=== PATIENT | male | born 1975 | race Caucasian/White ===

== ENCOUNTER 2019-04-12 14:57 | Emergency (ER) | payer OTHER ==
[~2019-04-12] VITALS: Ht 180.3 cm; Wt 119.7 kg
[~2019-04-12 14:57] MED LIST: ADDERALL XR 3030 MG PO; BACTRIM DS TAB1 EACH PO; GLIPIZIDE ER5 MG PO; LEVAQUIN500 MG PO
--- OUTSIDE RECORDS SUMMARY | 2019-04-12 15:01 | XMS REPORT | Summary of Care ---
Author Author [facility] Organization [facility] Address Unknown Phone Unavailable Encounter HQ Juaquin(MELANIE) [id number] Date(s): 12/17/16 - 12/25/16 [facility] [address] [place] [address]- Discharge Disposition: Home or Self Care Attending Physician: Jimbo Berkowitz DO Admitting Physician: Jimbo Berkowitz DO Vital Signs 1 2 3 Most recent to oldest [Reference Range]: 180.34 cm (12/18/16 3:34 AM) 180.34 cm (12/17/16 9:16 PM) Height 99.4 DegF *HI* (12/25/16 11:53 AM) 98.8 DegF (12/25/16 8:00 AM) 98.4 DegF (12/25/16 4:00 AM) Temperature Oral [96.4-99.1 DegF] 107/69 mmHg (12/25/16 11:53 AM) 104/70 mmHg (12/25/16 8:00 AM) 106/69 mmHg (12/25/16 4:00 AM) Blood Pressure [90-140/60-90 mmHg] 17 BRMIN (12/25/16 11:53 AM) 17 BRMIN (12/25/16 8:00 AM) 16 BRMIN (12/25/16 4:00 AM) Respiratory Rate [14-20 BRMIN] 97 bpm (12/25/16 11:53 AM) 92 bpm (12/25/16 8:00 AM) 90 bpm (12/25/16 4:00 AM) Peripheral Pulse Rate [60-100 bpm] 115.455 kg (12/18/16 3:34 AM) 115 kg (12/17/16 9:16 PM) Weight 35.5 m2 (12/18/16 3:34 AM) 35.36 m2 (12/17/16 9:16 PM) Body Mass Index Problem List Condition Effective Dates Status Health Status Informant ADD (attention Active deficit disorder)(Confirmed) Cellulitis(Confirmed Resolved ) Diabetes(Confirmed) Resolved Psoriasis(Confirmed) Active 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) Allergies, Adverse Reactions, Alerts Substance Reaction Severity Status NKDA Active Medications Acetadote + D5W 200 mL 15,000 mg, 75 mL, Route: IV, Drug form: SOLN, ONCE, Dosing Weight 115.455, kg, S tart date: 12/19/16 14:41:00 PHYSICAL THERAPY AIDES TEACHER, Stop date: 12/19/16 14:41:00 PHYSICAL THERAPY AIDES TEACHER Notes: (Same as: Acetadote) MEDICATION WASTE Product Size: [address] Wasted: ___ mgWASTE: F/P - Black; E - Municipal Trash Bin Start Date: 12/19/16 Stop Date: 12/19/16 Status: Completed acetylcysteine oral solution (mg) 16,100 mg, 80.5 mL, Route: PO, Drug form: SOLN, ONCE, Dosing Weight 115.455, kg, Start date: 12/20/16 19:38:00 PHYSICAL THERAPY AIDES TEACHER, Stop date: 12/20/16 19:38:00 PHYSICAL THERAPY AIDES TEACHER Notes: WASTE: F/P - Black; E - Municipal Trash Bin Start Date: 12/20/16 Stop Date: 12/20/16 Status: Completed Adderall 30 mg, Route: PO, Drug form: TAB, QAM, Dosing Weight 115.455, kg, Start date: 9:00:00 PHYSICAL THERAPY AIDES TEACHER, Duration: 30 day, Stop date: 01/17/17 9:00:00 PHYSICAL THERAPY AIDES TEACHER Start Date: 12/19/16 Stop Date: 12/19/16 Status: Discontinued Adderall 30 mg oral tablet 30 mg=1 tab, PO, QAM, 0 Refill(s) Start Date: 12/17/16 Status: Ordered Adderall XR 10 mg, Route: PO, Drug form: ERCAP, Before Lunch, Dosing Weight 115.455, kg, Sta rt date: 12/19/16 11:30:00 PHYSICAL THERAPY AIDES TEACHER, Duration: 30 day, Stop date: 01/17/17 11:30:[address] Start Date: 12/19/16 Stop Date: 12/19/16 Status: Discontinued Adderall XR 10 mg oral capsule, extended release 10 mg=1 cap, PO, Before Lunch, 0 Refill(s) Start Date: 12/17/16 Stop Date: 12/24/16 Status: Discontinued calcium gluconate + sodium chloride 0.9% INJ 100 mL 2 gm, 20 mL, Route: IVPB, PRN, Dosing Weight 115, kg, PRN Abnormal Lab Result, F or NON-ICU Patients Only., Start date: 12/18/16 3:22:00 PHYSICAL THERAPY AIDES TEACHER, Duration: 30 day, S top date: 01/17/17 3:21:00 PHYSICAL THERAPY AIDES TEACHER Notes: WASTE: F/P - Sink; E - Municipal Trash Bin Start Date: 12/18/16 Stop Date: 12/18/16 Status: Discontinued calcium gluconate + sodium chloride 0.9% INJ 150 mL 3 gm, 30 mL, Route: IVPB, PRN, Dosing Weight 115, kg, PRN Abnormal Lab Result, F or NON-ICU Patients Only., Start date: 12/18/16 3:22:00 PHYSICAL THERAPY AIDES TEACHER, Duration: 30 day, S top date: 01/17/17 3:21:00 PHYSICAL THERAPY AIDES TEACHER Notes: WASTE: F/P - Sink; E - Municipal Trash Bin Start Date: 12/18/16 Stop Date: 12/18/16 Status: Discontinued Dextrose 50% Syringe 25 gm, 50 mL, Route: IVP, Drug Form: INJ, Dosing Weight 115.455, kg, PRN, PRN Bl ood Glucose Results, Start date: 12/18/16 4:01:00 PHYSICAL THERAPY AIDES TEACHER, Duration: 30 day, Stop da te: 01/17/17 4:00:00 PHYSICAL THERAPY AIDES TEACHER Start Date: 12/18/16 Stop Date: 12/18/16 Status: Discontinued Dextrose 50% Syringe 12.5 gm, 25 mL, Route: IVP, Drug Form: INJ, Dosing Weight 115.455, kg, PRN, PRN Blood Glucose Results, Start date: 12/18/16 4:01:00 PHYSICAL THERAPY AIDES TEACHER, Duration: 30 day, Stop date: 01/17/17 4:00:00 PHYSICAL THERAPY AIDES TEACHER Start Date: 12/18/16 Stop Date: 12/18/16 Status: Discontinued Dextrose 50% Syringe 25 gm, 50 mL, Route: IVP, Drug Form: INJ, Dosing Weight 115.455, kg, PRN, PRN Bl ood Glucose Results, Start date: 12/18/16 14:49:00 PHYSICAL THERAPY AIDES TEACHER, Duration: 30 day, Stop d ate: 01/17/17 14:48:00 PHYSICAL THERAPY AIDES TEACHER Start Date: 12/18/16 Stop Date: 12/25/16 Status: Discontinued Dextrose 50% Syringe 12.5 gm, 25 mL, Route: IVP, Drug Form: INJ, Dosing Weight 115.455, kg, PRN, PRN Blood Glucose Results, Start date: 12/18/16 14:49:00 PHYSICAL THERAPY AIDES TEACHER, Duration: 30 day, Stop date: 01/17/17 14:48:00 PHYSICAL THERAPY AIDES TEACHER Start Date: 12/18/16 Stop Date: 12/25/16 Status: Discontinued Dilaudid 0.5 mg, 0.5 mL, Route: IV, Drug form: INJ, Q4H, Dosing Weight 115.455, kg, PRN P ain Score 7-10, Start date: 12/20/16 1:26:00 PHYSICAL THERAPY AIDES TEACHER, Duration: 30 day, Stop date: 0 01/19/17 1:25:00 PHYSICAL THERAPY AIDES TEACHER Start Date: 12/20/16 Stop Date: 12/25/16 Status: Discontinued Farxiga 10 mg oral tablet 10 mg=1 tab, PO, Daily, 0 Refill(s) Start Date: 12/17/16 Status: Ordered glucagon 1 mg, Route: IM, Drug form: PDR/INJ, PRN, Dosing Weight 115.455, kg, PRN Blood G lucose Results, Start date: 12/18/16 4:01:00 PHYSICAL THERAPY AIDES TEACHER, Duration: 30 day, Stop date: 0 01/17/17 4:00:00 PHYSICAL THERAPY AIDES TEACHER Start Date: 12/18/16 Stop Date: 12/18/16 Status: Discontinued glucagon 1 mg, Route: IM, Drug form: PDR/INJ, PRN, Dosing Weight 115.455, kg, PRN Blood G lucose Results, Start date: 12/18/16 14:49:00 PHYSICAL THERAPY AIDES TEACHER, Duration: 30 day, Stop date: 01/17/17 14:48:00 PHYSICAL THERAPY AIDES TEACHER Start Date: 12/18/16 Stop Date: 12/25/16 Status: Discontinued ibuprofen 400 mg, 1 tab, Route: PO, Drug form: TAB, Q4H, Dosing Weight 115.455, kg, PRN Pa in 1-3/Temp > 100.4 F, Start date: 12/18/16 14:51:00 PHYSICAL THERAPY AIDES TEACHER, Duration: 30 day, Stop date: 01/17/17 14:50:00 PHYSICAL THERAPY AIDES TEACHER Notes: (Same as: Jerry)"Do Not Crush" Give with food. Start Date: 12/18/16 Stop Date: 12/19/16 Status: Discontinued insulin aspart 8 unit, 0.08 mL, Route: SUB-Q, Drug form: SOLN, TID-Before Meals, Dosing Weight 115.455, kg, PRN Blood Glucose Results, Start date: 12/18/16 4:01:00 PHYSICAL THERAPY AIDES TEACHER, Durati on: 30 day, Stop date: 01/17/17 4:00:00 PHYSICAL THERAPY AIDES TEACHER Notes: Roll in palms of hands gently; Do not shake vigorously. (Same as: Margot Perea)"single patient use only"WASTE: F/P - Black; E - Municipal Trash Bin Stable f or 28 days at room temperature.Expires in days from Date Start Date: 12/18/16 Stop Date: 12/18/16 Status: Discontinued insulin aspart 10 unit, 0.1 mL, Route: SUB-Q, Drug form: SOLN, TID-Before Meals, Dosing Weight 115.455, kg, PRN Blood Glucose Results, Start date: 12/18/16 4:01:00 PHYSICAL THERAPY AIDES TEACHER, Durati on: 30 day, Stop date: 01/17/17 4:00:00 PHYSICAL THERAPY AIDES TEACHER Notes: Roll in palms of hands gently; Do not shake vigorously. (Same as: Margot Perea)"single patient use only"WASTE: F/P - Black; E - Municipal Trash Bin Stable f or 28 days at room temperature.Expires in days from Date Start Date: 12/18/16 Stop Date: 12/18/16 Status: Discontinued insulin aspart 6 unit, 0.06 mL, Route: SUB-Q, Drug form: SOLN, TID-Before Meals, Dosing Weight 115.455, kg, PRN Blood Glucose Results, Start date: 12/18/16 4:01:00 PHYSICAL THERAPY AIDES TEACHER, Durati on: 30 day, Stop date: 01/17/17 4:00:00 PHYSICAL THERAPY AIDES TEACHER Notes: Roll in palms of hands gently; Do not shake vigorously. (Same as: Margot Perea)"single patient use only"WASTE: F/P - Black; E - Municipal Trash Bin Stable f or 28 days at room temperature.Expires in days from Date Start Date: 12/18/16 Stop Date: 12/18/16 Status: Discontinued insulin aspart 4 unit, 0.04 mL, Route: SUB-Q, Drug form: SOLN, TID-Before Meals, Dosing Weight 115.455, kg, PRN Blood Glucose Results, Start date: 12/18/16 4:01:00 PHYSICAL THERAPY AIDES TEACHER, Durati on: 30 day, Stop date: 01/17/17 4:00:00 PHYSICAL THERAPY AIDES TEACHER Notes: Roll in palms of hands gently; Do not shake vigorously. (Same as: NovoSHEMAR Perea)"single patient use only"WASTE: F/P - Black; E - Municipal Trash Bin Stable f or 28 days at room temperature.Expires in days from Date Start Date: 12/18/16 Stop Date: 12/18/16 Status: Discontinued insulin aspart 2 unit, 0.02 mL, Route: SUB-Q, Drug form: SOLN, TID-Before Meals, Dosing Weight 115.455, kg, PRN Blood Glucose Results, Start date: 12/18/16 4:01:00 PHYSICAL THERAPY AIDES TEACHER, Durati on: 30 day, Stop date: 01/17/17 4:00:00 PHYSICAL THERAPY AIDES TEACHER Notes: Roll in palms of hands gently; Do not shake vigorously. (Same as: NovoSHEMAR Perea)"single patient use only"WASTE: F/P - Black; E - Municipal Trash Bin Stable f or 28 days at room temperature.Expires in days from Date Start Date: 12/18/16 Stop Date: 12/18/16 Status: Discontinued insulin aspart 8 unit, 0.08 mL, Route: SUB-Q, Drug form: SOLN, TID-Before Meals, Dosing Weight 115.455, kg, PRN Blood Glucose Results, Start date: 12/18/16 14:49:00 PHYSICAL THERAPY AIDES TEACHER, Durat ion: 30 day, Stop date: 01/17/17 14:48:00 PHYSICAL THERAPY AIDES TEACHER Notes: Roll in palms of hands gently; Do not shake vigorously. (Same as: Margot Perea)"single patient use only"WASTE: F/P - Black; E - Municipal Trash Bin Stable f or 28 days at room temperature.Expires in days from Date Start Date: 12/18/16 Stop Date: 12/25/16 Status: Discontinued insulin aspart 10 unit, 0.1 mL, Route: SUB-Q, Drug form: SOLN, TID-Before Meals, Dosing Weight 115.455, kg, PRN Blood Glucose Results, Start date: 12/18/16 14:49:00 PHYSICAL THERAPY AIDES TEACHER, Durat ion: 30 day, Stop date: 01/17/17 14:48:00 PHYSICAL THERAPY AIDES TEACHER Notes: Roll in palms of hands gently; Do not shake vigorously. (Same as: Margot Perea)"single patient use only"WASTE: F/P - Black; E - Municipal Trash Bin Stable f or 28 days at room temperature.Expires in days from Date Start Date: 12/18/16 Stop Date: 12/25/16 Status: Discontinued insulin aspart 3 unit, 0.03 mL, Route: SUB-Q, Drug form: SOLN, Bedtime, Dosing Weight 115.455, kg, PRN Blood Glucose Results, Start date: 12/18/16 14:49:00 PHYSICAL THERAPY AIDES TEACHER, Duration: 30 d ay, Stop date: 01/17/17 14:48:00 PHYSICAL THERAPY AIDES TEACHER Notes: Roll in palms of hands gently; Do not shake vigorously. (Same as: Margot Perea)"single patient use only"WASTE: F/P - Black; E - Municipal Trash Bin Stable f or 28 days at room temperature.Expires in days from Date Start Date: 12/18/16 Stop Date: 12/25/16 Status: Discontinued insulin aspart 2 unit, 0.02 mL, Route: SUB-Q, Drug form: SOLN, Bedtime, Dosing Weight 115.455, kg, PRN Blood Glucose Results, Start date: 12/18/16 14:49:00 PHYSICAL THERAPY AIDES TEACHER, Duration: 30 d ay, Stop date: 01/17/17 14:48:00 PHYSICAL THERAPY AIDES TEACHER Notes: Roll in palms of hands gently; Do not shake vigorously. (Same as: Margot Perea)"single patient use only"WASTE: F/P - Black; E - Municipal Trash Bin Stable f or 28 days at room temperature.Expires in days from Date Start Date: 12/18/16 Stop Date: 12/25/16 Status: Discontinued insulin aspart 1 unit, 0.01 mL, Route: SUB-Q, Drug form: SOLN, Bedtime, Dosing Weight 115.455, kg, PRN Blood Glucose Results, Start date: 12/18/16 14:49:00 PHYSICAL THERAPY AIDES TEACHER, Duration: 30 d ay, Stop date: 01/17/17 14:48:00 PHYSICAL THERAPY AIDES TEACHER Notes: Roll in palms of hands gently; Do not shake vigorously. (Same as: Margot Perea)"single patient use only"WASTE: F/P - Black; E - Municipal Trash Bin Stable f or 28 days at room temperature.Expires in days from Date Start Date: 12/18/16 Stop Date: 12/25/16 Status: Discontinued insulin aspart 4 unit, 0.04 mL, Route: SUB-Q, Drug form: SOLN, Bedtime, Dosing Weight 115.455, kg, PRN Blood Glucose Results, Start date: 12/18/16 14:49:00 PHYSICAL THERAPY AIDES TEACHER, Duration: 30 d ay, Stop date: 01/17/17 14:48:00 PHYSICAL THERAPY AIDES TEACHER Notes: Roll in palms of hands gently; Do not shake vigorously. (Same as: Margot Perea)"single patient use only"WASTE: F/P - Black; E - Municipal Trash Bin Stable f or 28 days at room temperature.Expires in days from Date Start Date: 12/18/16 Stop Date: 12/25/16 Status: Discontinued insulin aspart 6 unit, 0.06 mL, Route: SUB-Q, Drug form: SOLN, TID-Before Meals, Dosing Weight 115.455, kg, PRN Blood Glucose Results, Start date: 12/18/16 14:49:00 PHYSICAL THERAPY AIDES TEACHER, Durat ion: 30 day, Stop date: 01/17/17 14:48:00 PHYSICAL THERAPY AIDES TEACHER Notes: Roll in palms of hands gently; Do not shake vigorously. (Same as: Margot Perea)"single patient use only"WASTE: F/P - Black; E - Municipal Trash Bin Stable f or 28 days at room temperature.Expires in days from Date Start Date: 12/18/16 Stop Date: 12/25/16 Status: Discontinued insulin aspart 4 unit, 0.04 mL, Route: SUB-Q, Drug form: SOLN, TID-Before Meals, Dosing Weight 115.455, kg, PRN Blood Glucose Results, Start date: 12/18/16 14:49:00 PHYSICAL THERAPY AIDES TEACHER, Durat ion: 30 day, Stop date: 01/17/17 14:48:00 PHYSICAL THERAPY AIDES TEACHER Notes: Roll in palms of hands gently; Do not shake vigorously. (Same as: Margot Perea)"single patient use only"WASTE: F/P - Black; E - Municipal Trash Bin Stable f or 28 days at room temperature.Expires in days from Date Start Date: 12/18/16 Stop Date: 12/25/16 Status: Discontinued insulin aspart 2 unit, 0.02 mL, Route: SUB-Q, Drug form: SOLN, TID-Before Meals, Dosing Weight 115.455, kg, PRN Blood Glucose Results, Start date: 12/18/16 14:49:00 PHYSICAL THERAPY AIDES TEACHER, Durat ion: 30 day, Stop date: 01/17/17 14:48:00 PHYSICAL THERAPY AIDES TEACHER Notes: Roll in palms of hands gently; Do not shake vigorously. (Same as: Margot Perea)"single patient use only"WASTE: F/P - Black; E - Municipal Trash Bin Stable f or 28 days at room temperature.Expires in days from Date Start Date: 12/18/16 Stop Date: 12/25/16 Status: Discontinued Insulin regular 4 unit, 0.04 mL, Route: IVP, Drug form: INJ, ONCE, Dosing Weight 115, kg, Priori ty: STAT, Start date: 12/18/16 1:02:00 PHYSICAL THERAPY AIDES TEACHER, Stop date: 12/18/16 1:02:00 PHYSICAL THERAPY AIDES TEACHER Notes: (Same as: Humulin R and NovoLIN R)WASTE: F/P - Black; E - Municipal Trash Bin (Do not shake) Start Date: 12/18/16 Stop Date: 12/18/16 Status: Completed Levemir 10 unit, 0.1 mL, Route: SUB-Q, Drug form: INJ, Bedtime, Dosing Weight 115.455, k g, Start date: 12/20/16 21:00:00 PHYSICAL THERAPY AIDES TEACHER, Duration: 30 day, Stop date: 01/18/17 21:0 0:00 PHYSICAL THERAPY AIDES TEACHER Notes: Same as GeorgiairDo not hold insulin without contacting prescriberWASTE: F/ P - Black; E - Municipal Trash Bin "single patient use only" Start Date: 12/20/16 Stop Date: 12/25/16 Status: Discontinued magnesium oxide 800 mg, 2 tab, Route: PO, Drug form: TAB, PRN, Dosing Weight 115, kg, PRN Abnorm al Lab Result, For NON-ICU Patients Only., Start date: 12/18/16 3:22:00 PHYSICAL THERAPY AIDES TEACHER, Dur ation: 30 day, Stop date: 01/17/17 3:21:00 PHYSICAL THERAPY AIDES TEACHER Notes: (Same as: Mag-Ox 400)Magnesium oxide [id number] elemental magnesiumDose= ____mg magnesium oxide (___mg elemental magnesium) Start Date: 12/18/16 Stop Date: 12/18/16 Status: Discontinued magnesium sulfate 1 gm, 100 mL, Route: IVPB, Drug form: INJ, PRN, Dosing Weight 115, kg, PRN Abnor mal Lab Result, For NON-ICU Patients Only., Start date: 12/18/16 3:22:00 PHYSICAL THERAPY AIDES TEACHER, Du ration: 30 day, Stop date: 01/17/17 3:21:00 PHYSICAL THERAPY AIDES TEACHER Notes: WASTE: F/P - Sink; E - Municipal Trash Bin Start Date: 12/18/16 Stop Date: 12/18/16 Status: Discontinued magnesium sulfate 2 gm, 50 mL, Route: IVPB, Drug form: INJ, PRN, Dosing Weight 115, kg, PRN Abnorm al Lab Result, For NON-ICU Patients Only., Start date: 12/18/16 3:22:00 PHYSICAL THERAPY AIDES TEACHER, Dur ation: 30 day, Stop date: 01/17/17 3:21:00 PHYSICAL THERAPY AIDES TEACHER Notes: WASTE: F/P - Sink; E - Municipal Trash Bin Start Date: 12/18/16 Stop Date: 12/18/16 Status: Discontinued morphine Sulfate 2 mg, 1 mL, Route: IVP, Drug form: INJ, Q4H, Dosing Weight 115, kg, PRN Pain Sco re 7-10, Start date: 12/18/16 3:23:00 PHYSICAL THERAPY AIDES TEACHER, Duration: 30 day, Stop date: 01/17/17 3:22:00 PHYSICAL THERAPY AIDES TEACHER Notes: (Same as:MORPhine Sulfate) Start Date: 12/18/16 Stop Date: 12/19/16 Status: Discontinued ondansetron 4 mg, 2 mL, Route: IVP, Drug form: INJ, Q6H, Dosing Weight 115, kg, PRN Nausea & Vomiting, Start date: 12/18/16 3:23:00 PHYSICAL THERAPY AIDES TEACHER, Duration: 30 day, Stop date: 3:22:00 PHYSICAL THERAPY AIDES TEACHER Notes: (Same as: Xi) MEDICATION WASTE Product Size: 4 mgProduct Was alexis: ___ mg Start Date: 12/18/16 Stop Date: 12/25/16 Status: Discontinued PHOS-NaK 1 pkt, Route: PO, Drug Form: PDR/REC, Dosing Weight 115.455, kg, ONCE, Start med e: 12/21/16 9:02:00 PHYSICAL THERAPY AIDES TEACHER, Stop date: 12/21/16 9:02:00 PHYSICAL THERAPY AIDES TEACHER Notes: (Same as: Phos-NaK) Each 1.5 gm pkt has 250mg phosphorous. Mix w/2.5oz w ater and stir. Start Date: 12/21/16 Stop Date: 12/21/16 Status: Completed PHOS-NaK 1 pkt, Route: PO, Drug Form: PDR/REC, Dosing Weight 115.455, kg, ONCE, Start med e: 12/22/16 15:28:00 PHYSICAL THERAPY AIDES TEACHER, Stop date: 12/22/16 15:28:00 PHYSICAL THERAPY AIDES TEACHER Notes: (Same as: Phos-NaK) Each 1.5 gm pkt has 250mg phosphorous. Mix w/2.5oz w ater and stir. Start Date: 12/22/16 Stop Date: 12/22/16 Status: Completed PHOS-NaK 1 pkt, Route: PO, Drug Form: PDR/REC, Dosing Weight 115.455, kg, ONCE, Start med e: 12/20/16 8:13:00 PHYSICAL THERAPY AIDES TEACHER, Stop date: 12/20/16 8:13:00 PHYSICAL THERAPY AIDES TEACHER Notes: (Same as: Phos-NaK) Each 1.5 gm pkt has 250mg phosphorous. Mix w/2.5oz w ater and stir. Start Date: 12/20/16 Stop Date: 12/20/16 Status: Completed PHOS-NaK 1 pkt, Route: PO, Drug Form: PDR/REC, Dosing Weight 115.455, kg, ONCE, Start med e: 12/25/16 10:59:00 PHYSICAL THERAPY AIDES TEACHER, Stop date: 12/25/16 10:59:00 PHYSICAL THERAPY AIDES TEACHER Notes: (Same as: Phos-NaK) Each 1.5 gm pkt has 250mg phosphorous. Mix w/2.5oz w ater and stir. Start Date: 12/25/16 Stop Date: 12/25/16 Status: Completed Please bring Pt's Own Adderall to pharmacy for labels Please bring Pt's Own Adderall to pharmacy for labels, Reminder, Drug form: MISC , Route: MISC, Q12H, 12/18/16 15:00:00 PHYSICAL THERAPY AIDES TEACHER, Duration: 30 day, Stop date: 7 9:00:00 PHYSICAL THERAPY AIDES TEACHER Start Date: 12/18/16 Stop Date: 12/22/16 Status: Voided With Results potassium chloride 40 mEq, 2 tab, Route: PO, Drug form: ERTAB, ONCE, Dosing Weight 115.455, kg, Sta rt date: 12/20/16 8:43:00 PHYSICAL THERAPY AIDES TEACHER, Stop date: 12/20/16 8:43:00 PHYSICAL THERAPY AIDES TEACHER Notes: (Same as: K-Dur 20)"Do Not Crush" With food and full glass of water Start Date: 12/20/16 Stop Date: 12/20/16 Status: Completed potassium chloride 10 mEq, 100 mL, Route: IVPB, Drug form: INJ, PRN, Dosing Weight 115, kg, PRN Abn ormal Lab Result, For NON-ICU Patients Only, Start date: 12/18/16 3:22:00 PHYSICAL THERAPY AIDES TEACHER, D uration: 30 day, Stop date: 01/17/17 3:21:00 PHYSICAL THERAPY AIDES TEACHER Notes: Infuse at a rate of 10 mEq/hr.(Same as: KCL) Start Date: 12/18/16 Stop Date: 12/18/16 Status: Discontinued potassium chloride 20 mEq, 1 tab, Route: PO, Drug form: ERTAB, PRN, Dosing Weight 115, kg, PRN Abno rmal Lab Result, For NON-ICU Patients Only, Start date: 12/18/16 3:22:00 PHYSICAL THERAPY AIDES TEACHER, Du ration: 30 day, Stop date: 01/17/17 3:21:00 PHYSICAL THERAPY AIDES TEACHER Notes: (Same as: K-Dur 20)"Do Not Crush" With food and full glass of water Start Date: 12/18/16 Stop Date: 12/18/16 Status: Discontinued potassium chloride 20 mEq, 15 mL, Route: NJ, Drug form: LIQ, PRN, Dosing Weight 115, kg, PRN Abnorm al Lab Result, For NON-ICU Patients Only, Start date: 12/18/16 3:22:00 PHYSICAL THERAPY AIDES TEACHER, Dura tion: 30 day, Stop date: 01/17/17 3:21:00 PHYSICAL THERAPY AIDES TEACHER Notes: (Same as: Potassium Chloride) Start Date: 12/18/16 Stop Date: 12/18/16 Status: Discontinued potassium chloride 20 mEq oral tablet, extended release 40 mEq, 2 tab, Route: PO, Drug form: ERTAB, ONCE, Dosing Weight 115, kg, Priorit y: STAT, Start date: 12/18/16 1:02:00 PHYSICAL THERAPY AIDES TEACHER, Stop date: 12/18/16 1:02:00 PHYSICAL THERAPY AIDES TEACHER Notes: (Same as: K-Dur 20)"Do Not Crush" With food and full glass of water Start Date: 12/18/16 Stop Date: 12/18/16 Status: Completed potassium phosphate 1.45 gm, Route: PO, ONCE, Dosing Weight 115.455, kg, Start date: 12/20/16 6:56:0 0 PHYSICAL THERAPY AIDES TEACHER, Stop date: 12/20/16 6:56:00 PHYSICAL THERAPY AIDES TEACHER Start Date: 12/20/16 Stop Date: 12/20/16 Status: Deleted potassium phosphate + sodium chloride 0.9% INJ 250 mL 15 mmol, 5 mL, Route: IVPB, ONCE, Dosing Weight 115.455, kg, Start date: 7 7:51:00 PHYSICAL THERAPY AIDES TEACHER, Stop date: 12/23/16 7:51:00 PHYSICAL THERAPY AIDES TEACHER Notes: (Same as: K Phosphate.) 1 mMol phoshate has 1.47 mEq potassium Infuse o ludin 4 hours Start Date: 12/23/16 Stop Date: 12/23/16 Status: Completed potassium phosphate + sodium chloride 0.9% INJ 250 mL 15 mmol, 5 mL, Route: IVPB, ONCE, Dosing Weight 115.455, kg, Start date: 7 16:08:00 PHYSICAL THERAPY AIDES TEACHER, Stop date: 12/23/16 16:08:00 PHYSICAL THERAPY AIDES TEACHER Notes: (Same as: K Phosphate.) 1 mMol phoshate has 1.47 mEq potassium Infuse o ludin 4 hours Start Date: 12/23/16 Stop Date: 12/23/16 Status: Completed potassium phosphate + sodium chloride 0.9% INJ 250 mL 30 mmol, 10 mL, Route: IVPB, PRN, Dosing Weight 115, kg, PRN Abnormal Lab Result , For NON-ICU Patients Only., Start date: 12/18/16 3:22:00 PHYSICAL THERAPY AIDES TEACHER, Duration: 30 day , Stop date: 01/17/17 3:21:00 PHYSICAL THERAPY AIDES TEACHER Notes: (Same as: K Phosphate.) 1 mMol phoshate has 1.47 mEq potassium Infuse o ludin 4 hours Start Date: 12/18/16 Stop Date: 12/18/16 Status: Discontinued potassium phosphate + sodium chloride 0.9% INJ 250 mL 15 mmol, 5 mL, Route: IVPB, PRN, Dosing Weight 115, kg, PRN Abnormal Lab Result, For NON-ICU Patients Only., Start date: 12/18/16 3:22:00 PHYSICAL THERAPY AIDES TEACHER, Duration: 30 day, Stop date: 01/17/17 3:21:00 PHYSICAL THERAPY AIDES TEACHER Notes: (Same as: K Phosphate.) 1 mMol phoshate has 1.47 mEq potassium Infuse o ludin 4 hours Start Date: 12/18/16 Stop Date: 12/18/16 Status: Discontinued potassium phosphate-sodium phosphate 250 mg-280 mg-160 mg oral powder for recons titution 2 pkt, Route: PO, Drug Form: PDR/REC, Dosing Weight 115, kg, PRN, PRN Abnormal L ab Result, For NON-ICU Patients Only, Start date: 12/18/16 3:22:00 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 Mix w/2.5oz w ater and stir. Start Date: 12/18/16 Stop Date: 12/18/16 Status: Discontinued Saline Flush 0.9% 10 ml, Route: IVP, Drug Form: INJ, Dosing Weight 115, kg, PRN, PRN Line Flush, S tart date: 12/18/16 3:23:00 PHYSICAL THER[employer]Y [employer]IDES TEACHER, Duration: 30 day, Stop date: 01/17/17 3:22:[address] Notes: (Same as: BD Posiflush) Start Date: 12/18/16 Stop Date: 12/25/16 Status: Discontinued Saline Flush 0.9% 10 mL, Route: IVP, Drug Form: INJ, Dosing Weight 115, kg, PRN, PRN Line Flush, S tart date: 12/17/16 21:58:00 PHYSICAL THER[employer]Y [employer]IDES TE[employer]ER, Duration: 30 day, Stop date: 01/16/17 21:57:00 PHYSICAL THERAPY AIDES TEACHER Notes: (Same as: BD Posiflush) Start Date: 12/17/16 Stop Date: 12/25/16 Status: Discontinued sodium chloride 0.9% 1000 ml INJ 1,000 mL 1,000 mL, Rate: 100 ml/hr, Infuse over: 10 hr, Route: IV, Dosing Weight 115 kg, Total Volume: 1,000, Start date: 12/18/16 3:23:00 PHYSICAL THERAPY AIDES TEACHER, Duration: 30 day, Stop da te: 01/17/17 3:22:00 PHYSICAL THERAPY AIDES TEACHER Start Date: 12/18/16 Stop Date: 12/20/16 Status: Discontinued sodium chloride 0.9% 1000 ml INJ 1,000 mL 1,000 mL, Rate: 125 ml/hr, Infuse over: 8 hr, Route: IV, Dosing Weight 115 kg, T otal Volume: 1,000, Start date: 12/17/16 21:58:00 PHYSICAL THERAPY AIDES TEACHER, Duration: 30 day, Stop da te: 01/16/17 21:57:00 PHYSICAL THERAPY AIDES TEACHER Start Date: 12/17/16 Stop Date: 12/18/16 Status: Discontinued sodium chloride 0.9% INJ 250 mL 250 mL, Rate: Geospatial Information Scientist for use with blood product administration., Dosing Weight 115, kg, Route: IV, Total Volume: 250, Priority: Routine, Start Date: 12/17/16 2 1:59:00 PHYSICAL THERAPY AIDES TEACHER, Duration: 1 day, Stop date: 12/18/16 21:58:00 PHYSICAL THERAPY AIDES TEACHER, Replace Every: 2 4 hr Start Date: 12/17/16 Stop Date: 12/18/16 Status: Discontinued sodium phosphate + D5W 250 mL 15 mmol, 5 mL, Route: IVPB, PRN, Dosing Weight 115, kg, PRN Abnormal Lab Result, For NON-ICU Patients Only., Start date: 12/18/16 3:22:00 PHYSICAL THERAPY AIDES TEACHER, Duration: 30 day, Stop date: 01/17/17 3:21:00 PHYSICAL THERAPY AIDES TEACHER Start Date: 12/18/16 Stop Date: 12/18/16 Status: Discontinued sodium phosphate + D5W 250 mL 30 mmol, 10 mL, Route: IVPB, PRN, Dosing Weight 115, kg, PRN Abnormal Lab Result , For NON-ICU Patients Only., Start date: 12/18/16 3:22:00 PHYSICAL THERAPY AIDES TEACHER, Duration: 30 day , Stop date: 01/17/17 3:21:00 PHYSICAL THERAPY AIDES TEACHER Start Date: 12/18/16 Stop Date: 12/18/16 Status: Discontinued tramadol 50 mg, 1 tab, Route: PO, Drug form: TAB, Q6H, Dosing Weight 115.455, kg, PRN Jessica n Score 4-6, Start date: 12/18/16 14:51:00 PHYSICAL THERAPY AIDES TEACHER, Duration: 30 day, Stop date: 06/28 14:50:00 PHYSICAL THERAPY AIDES TEACHER Notes: Not to exceed 400mg/day. (Same As: Ultram) Start Date: 12/18/16 Stop Date: 12/19/16 Status: Discontinued Ultram 50 mg oral tablet 50 mg=1 tab, PO, Q12H, # 20 tab, 0 Refill(s) Start Date: 12/24/16 Stop Date: 01/03/17 Status: Ordered Results BLOOD BANK RESULTS 1 2 3 Most recent to oldest [Reference Range]: A NEG *Unknown* (12/17/16 10:31 PM) ABO/Rh Negative (12/17/16 10:31 PM) Antibody Scrn ELECTROLYTES 1 2 3 Most recent to oldest [Reference Range]: 132 mEq/L *LOW* (12/25/16 7:33 AM) 134 mEq/L *LOW* (12/24/16 5:11 AM) 133 mEq/L *LOW* (12/23/16 6:14 AM) Sodium Lvl [135-145 mEq/L] 4.2 mEq/L (12/25/16 7:33 AM) 4.0 mEq/L (12/24/16 5:11 AM) 3.6 mEq/L (12/23/16 6:14 AM) Potassium Lvl [3.5-5.1 mEq/L] 98 mEq/L (12/25/16 7:33 AM) 98 mEq/L (12/24/16 5:11 AM) 101 mEq/L (12/23/16 6:14 AM) Chloride Lvl [95-109 mEq/L] 25 mEq/L (12/25/16 7:33 AM) 24 mEq/L (12/24/16 5:11 AM) 22 mEq/L *LOW* (12/23/16 6:14 AM) CO2 [24-32 mEq/L] 13.2 mEq/L (12/25/16 7:33 AM) 16.0 mEq/L (12/24/16 5:11 AM) 13.6 mEq/L (12/23/16 6:14 AM) AGAP [10.0-20.0 mEq/L] CHEM PANEL 1 2 3 Most recent to oldest [Reference Range]: 0.86 mg/dL (12/25/16 7:33 AM) 0.64 mg/dL (12/24/16 5:11 AM) 0.64 mg/dL (12/23/16 6:14 AM) Creatinine Lvl [0.50-1.40 mg/dL] 108 mL/min/1.73m2 1 *NA* (12/25/16 7:33 AM) 122 mL/min/1.73m2 2 *NA* (12/24/16 5:11 AM) 122 mL/min/1.73m2 3 *NA* (12/23/16 6:14 AM) eGFR 11 mg/dL (12/25/16 7:33 AM) 7 mg/dL (12/24/16 5:11 AM) 9 mg/dL (12/23/16 6:14 AM) BUN [7-22 mg/dL] 13 (12/25/16 7:33 AM) 11 (12/24/16 5:11 AM) 14 (12/23/16 6:14 AM) B/C Ratio [6-25] 185 mg/dL *HI* (12/25/16 7:33 AM) 141 mg/dL *HI* (12/24/16 5:11 AM) 202 mg/dL *HI* (12/23/16 6:14 AM) Glucose Lvl [70-99 mg/dL] 6.1 g/dL *LOW* (12/25/16 7:33 AM) 5.2 g/dL *LOW* (12/24/16 5:11 AM) 5.3 g/dL *LOW* (12/23/16 6:14 AM) Total Protein [6.4-8.4 g/dL] 2.4 g/dL *LOW* (12/25/16 7:33 AM) 2.4 g/dL *LOW* (12/24/16 5:11 AM) 2.2 g/dL *LOW* (12/23/16 6:14 AM) Albumin Lvl [3.5-5.0 g/dL] 3.7 g/dL (12/25/16 7:33 AM) 2.8 g/dL (12/24/16 5:11 AM) 3.1 g/dL (12/23/16 6:14 AM) Globulin [2.7-4.2 g/dL] 0.6 *LOW* (12/25/16 7:33 AM) 0.9 (12/24/16 5:11 AM) 0.7 (12/23/16 6:14 AM) A/G Ratio [0.7-1.6] 8.3 mg/dL *LOW* (12/25/16 7:33 AM) 8.0 mg/dL *LOW* (12/24/16 5:11 AM) 7.7 mg/dL *LOW* (12/23/16 6:14 AM) Calcium Lvl [8.5-10.5 mg/dL] 2.0 mg/dL *LOW* (12/25/16 7:33 AM) 2.5 mg/dL (12/24/16 5:11 AM) 1.5 mg/dL 4 *CRIT* (12/23/16 6:14 AM) Phosphorus [2.5-4.5 mg/dL] 2.0 mg/dL (12/25/16 7:33 AM) 2.0 mg/dL (12/24/16 5:11 AM) 1.9 mg/dL (12/23/16 6:14 AM) Magnesium Lvl [1.8-2.4 mg/dL] 698 unit/L *HI* (12/25/16 7:33 AM) 951 unit/L *HI* (12/24/16 5:11 AM) 1211 unit/L *HI* (12/23/16 6:14 AM) ALT [0-65 unit/L] 207 unit/L *HI* (12/25/16 7:33 AM) 259 unit/L *HI* (12/24/16 5:11 AM) 354 unit/L *HI* (12/23/16 6:14 AM) AST [0-37 unit/L] 813 unit/L *HI* (12/19/16 2:00 PM) GGT [5-85 unit/L] 273 unit/L *HI* (12/25/16 7:33 AM) 239 unit/L *HI* (12/24/16 5:11 AM) 209 unit/L *HI* (12/23/16 6:14 AM) Alk Phos [39-136 unit/L] 13.2 mg/dL *HI* (12/25/16 7:33 AM) 14.6 mg/dL *HI* (12/24/16 5:11 AM) 13.6 mg/dL *HI* (12/23/16 6:14 AM) Bili Total [0.2-1.3 mg/dL] 12.8 mg/dL *HI* (12/20/16 6:04 AM) 13.3 mg/dL *HI* (12/19/16 4:36 AM) 14.0 mg/dL *HI* (12/18/16 2:15 AM) Bili Direct [0.0-0.3 mg/dL] 3.3 mg/dL *HI* (12/20/16 6:04 AM) 3.2 mg/dL *HI* (12/19/16 4:36 AM) Bili Indirect [0.0-1.0 mg/dL] 13 unit/L *LOW* (12/17/16 10:15 PM) Amylase Lvl [25-115 unit/L] 155 unit/L (12/17/16 10:15 PM) Lipase Lvl [73-393 unit/L] 45.0 uMol/L (12/19/16 2:00 PM) Ammonia [<=45.0 uMol/L] 1Result Comment: The eGFR is calculated using the CKD-EPI formula. In most young, healthy individuals the eGFR will be >90 mL/min/1.73m2. The eGFR declines with age. An eGFR of 60-89 may be normal in some populations, particularly the elderly, for whom the CKD-EPI formula has not been extensively validated. Use of the eGFR is not recommended in the following populations: Individuals with unstable creatinine concentrations, including patients and those with serious co-morbid conditions. Patients with extremes in muscle mass or diet. The data above are obtained from the National Kidney Disease Education Program ( NKDEP) which additionally recommends that when the eGFR is used in patients with extremes of body mass index for purposes of drug dosing, the eGFR should be mul tiplied by the estimated BMI. 2Result Comment: The eGFR is calculated using the CKD-EPI formula. In most young, healthy individuals the eGFR will be >90 mL/min/1.73m2. The eGFR declines with age. An eGFR of 60-89 may be normal in some populations, particularly the elderly, for whom the CKD-EPI formula has not been extensively validated. Use of the eGFR is not recommended in the following populations: Individuals with unstable creatinine concentrations, including patients and those with serious co-morbid conditions. Patients with extremes in muscle mass or diet. The data above are obtained from the National Kidney Disease Education Program ( NKDEP) which additionally recommends that when the eGFR is used in patients with extremes of body mass index for purposes of drug dosing, the eGFR should be mul tiplied by the estimated BMI. 3Result Comment: The eGFR is calculated using the CKD-EPI formula. In most young, healthy individuals the eGFR will be >90 mL/min/1.73m2. The eGFR declines with age. An eGFR of 60-89 may be normal in some populations, particularly the elderly, for whom the CKD-EPI formula has not been extensively validated. Use of the eGFR is not recommended in the following populations: Individuals with unstable creatinine concentrations, including patients and those with serious co-morbid conditions. Patients with extremes in muscle mass or diet. The data above are obtained from the National Kidney Disease Education Program ( NKDEP) which additionally recommends that when the eGFR is used in patients with extremes of body mass index for purposes of drug dosing, the eGFR should be mul tiplied by the estimated BMI. 4Result Comment: Critical Result(s) called to Kenyon Arciniega at 12/23/2016 07:40 by Kathy Cabrera. Read back OK. CARDIAC ENZYMES 1 2 3 Most recent to oldest [Reference Range]: 37 unit/L (12/23/16 4:36 PM) Total CK [12-191 unit/L] DRUG SCREEN 1 2 3 Most recent to oldest [Reference Range]: Negative *NA* (12/19/16 4:44 PM) U Methadone Scr [Negative] Negative *NA* (12/19/16 4:44 PM) U Propoxyph Scr [Negative] Negative *NA* (12/19/16 4:44 PM) U Amph Scr [Negative] Negative *NA* (12/19/16 4:44 PM) U Sariah Scr [Negative] Negative *NA* (12/19/16 4:44 PM) U Benzodia Scr [Negative] Negative *NA* (12/19/16 4:44 PM) U Cocaine Scr [Negative] Negative *NA* (12/19/16 4:44 PM) U Opiate Scr [Negative] Negative *NA* (12/19/16 4:44 PM) U Phencyc Scr [Negative] Negative *NA* (12/19/16 4:44 PM) U Cannab Scr [Negative] See Note (12/19/16 4:44 PM) UDS Note TOXICOLOGY 1 2 3 Most recent to oldest [Reference Range]: <2 (12/19/16 2:41 PM) Acetaminoph Lvl [10-20] URINE AND STOOL 1 2 3 Most recent to oldest [Reference Range]: Clear (12/17/16 10:31 PM) UA Turbidity [Clear] Addie *NA* (12/17/16 10:31 PM) UA Color 6.0 (12/17/16 10:31 PM) UA pH [5.0-8.0] 1.029 (12/17/16 10:31 PM) UA Spec Grav [<=1.030] 500 mg/dL *ABN* (12/17/16 10:31 PM) UA Glucose [Negative mg/dL] Negative (12/17/16 10:31 PM) UA Blood [Negative] Negative mg/dL *NA* (12/17/16 10:31 PM) UA Ketones [Negative mg/dL] Negative mg/dL (12/17/16 10:31 PM) UA Protein [Negative mg/dL] 2.0 mg/dL *HI* (12/17/16 10:31 PM) UA Urobilinogen [0.1-1.0 mg/dL] Small *ABN* (12/17/16 10:31 PM) UA Bili [Negative] Negative (12/17/16 10:31 PM) UA Leuk Est [Negative] Negative (12/17/16 10:31 PM) UA Nitrite [Negative] 1 /HPF (12/17/16 10:31 PM) UA WBC [0-5 /HPF] 2 /HPF (12/17/16 10:31 PM) UA RBC [0-2 /HPF] None Seen *NA* (12/17/16 10:31 PM) UA Sq Epi BODY FLUIDS 1 2 3 Most recent to oldest [Reference Range]: 1.3 g/dL *NA* (12/19/16 3:54 PM) Albumin BF Ascites *NA* (12/19/16 3:54 PM) Alb BF Type Ascites *NA* (12/19/16 3:54 PM) Prot BF Type Ascites *NA* (12/19/16 3:54 PM) LDH BF Type 2.5 g/dL *NA* (12/19/16 3:54 PM) Protein BF 94 unit/L *NA* (12/19/16 3:54 PM) LDH BF Red *ABN* (12/19/16 3:54 PM) Color BF [Colorless] Slight Cloudy (12/19/16 3:54 PM) Clarity BF [Clear] 6750 /mm3 *NA* (12/19/16 3:54 PM) RBC BF 445 /mm3 *NA* (12/19/16 3:54 PM) WBC BF 20 % 1 *NA* (12/19/16 3:54 PM) Segs BF 78 % 2 *NA* (12/19/16 3:54 PM) Lymph BF 2 % *NA* (12/19/16 3:54 PM) Macrophage BF Rare atypical cells present, favor reactive atypical mesothelial cells. Macrophages and blood elements. Per Dr. Hernandez. 12/20/2016 09:16 GANT *NA* (12/19/16 3:54 PM) Comment BF Ascites (12/19/16 3:54 PM) CellCnt BF Type 1Result Comment: Made correction call to Maeve Del Real. 12/20/2016 09:26 GANT 2Resepifanio Comment: Made correction call to Maeve Del Real. 12/20/2016 09:26 GANT IMMUNOLOGY 1 2 3 Most recent to oldest [Reference Range]: Negative 1 (12/19/16 2:00 PM) See Note 2 (12/18/16 5:51 AM) TREV [Negative] Negative (12/19/16 2:00 PM) See Note (12/18/16 5:51 AM) AMA Ab Scr [Negative] Positive *ABN* (12/19/16 2:00 PM) See Note (12/18/16 5:51 AM) SMA Screen [Negative] 1:80 *ABN* (12/19/16 2:00 PM) See Note (12/18/16 5:51 AM) SMA Titer [Negative] 997 mg/dL (12/20/16 2:49 PM) IgG Lvl [694-1618 mg/dL] 133.0 mg/dL (12/20/16 2:49 PM) IgA Lvl [68.0-378.0 mg/dL] 349.0 mg/dL *HI* (12/20/16 2:49 PM) IgM Lvl [60.0-263.0 mg/dL] 27 mg/dL (12/19/16 2:00 PM) Ceruloplasmin [20-60 mg/dL] 175 mg/dL (12/19/16 2:00 PM) A-1-AT [83-199 mg/dL] Non Reactive *NA* (12/20/16 2:49 PM) CMV IgG [Non Reactive] 0.6 S/CO Ratio *NA* (12/20/16 2:49 PM) CMV IgM >8.0 AI *HI* (12/20/16 2:49 PM) EBV VCA IgG [<=0.8 AI] <0.2 AI (12/20/16 2:49 PM) EBV VCA IgM [<=0.8 AI] <0.2 AI (12/20/16 2:49 PM) EBV Early Ab [<=0.8 AI] Negative *NA* (12/19/16 2:00 PM) HIV 1/2 Ab [Negative] >8.0 AI *HI* (12/20/16 2:49 PM) HSV 1 IgG [<=0.8 AI] <0.2 AI (12/20/16 2:49 PM) <0.2 AI (12/20/16 2:49 PM) HSV 2 IgG [<=0.8 AI] Positive *NA* (12/17/16 10:15 PM) Hep Bs Ag [Negative] Positive *NA* (12/17/16 10:15 PM) Hep B Core IgM [Negative] Negative *NA* (12/19/16 2:00 PM) Negative *NA* (12/17/16 10:15 PM) Hep A IgM [Negative] Negative *NA* (12/17/16 10:15 PM) Hep C Ab Positive 3 *ABN* (12/19/16 2:00 PM) Hep Be Ag [Negative] Negative 4 *NA* (12/19/16 2:00 PM) Hep Be Ab [Negative] Negative 5 *NA* (12/20/16 2:49 PM) Hep D Ab [Negative] Confirmed *NA* (12/17/16 10:15 PM) Hep Bs Ag Conf 1Result Comment: Moderate Cytoplasmic staining present. 2Result Comment: Please disregard result. Testing performed on green top tube, see acc # [id number] for repeat testing 3Result Comment: Performed At: [facility] [address] [place], [place] [id number] Du Prabhakar MD Ph:[phone] 4Result Comment: Performed At: [facility] [address], [place] [id number] Marco Gomez MD Ph:[phone] 5Result Comment: The Hepatitis D Virus total antibody CJ is a competitive immunoassay. A positive result indicates that antibodies against Hepatitis D are present, but it does not distinguish which isotype of antibody is present. This test was developed and its performance characteristics determined by [facility]. It has not been cleared or approved by the U.S. Food and Drug Administration. Results should be used in conjunction with clinical findings, and should not form the sole basis for a diagnosis or treatment decision. Performed At: [facility] [address], [place] [id number] Jack Jules PhD Ph:[phone] HEMATOLOGY 1 2 3 Most recent to oldest [Reference Range]: 3.9 K/CMM (12/25/16 7:33 AM) 4.5 K/CMM (12/24/16 5:11 AM) 4.6 K/CMM (12/23/16 6:14 AM) WBC [3.7-10.4 K/CMM] 4.89 M/CMM (12/25/16 7:33 AM) 4.84 M/CMM (12/24/16 5:11 AM) 4.86 M/CMM (12/23/16 6:14 AM) RBC [4.70-6.10 M/CMM] 14.6 g/dL (12/25/16 7:33 AM) 14.9 g/dL (12/24/16 5:11 AM) 14.3 g/dL (12/23/16 6:14 AM) Hgb [14.0-18.0 g/dL] 43.2 % (12/25/16 7:33 AM) 41.9 % *LOW* (12/24/16 5:11 AM) 42.3 % (12/23/16 6:14 AM) Hct [42.0-54.0 %] 88.3 fL (12/25/16 7:33 AM) 86.7 fL (12/24/16 5:11 AM) 87.1 fL (12/23/16 6:14 AM) MCV [80.0-94.0 fL] 30.0 pg (12/25/16 7:33 AM) 30.7 pg (12/24/16 5:11 AM) 29.5 pg (12/23/16 6:14 AM) MCH [27.0-31.0 pg] 33.9 g/dL (12/25/16 7:33 AM) 35.5 g/dL (12/24/16 5:11 AM) 33.9 g/dL (12/23/16 6:14 AM) MCHC [32.0-36.0 g/dL] 14.7 % *HI* (12/25/16 7:33 AM) 14.8 % *HI* (12/24/16 5:11 AM) 14.4 % (12/23/16 6:14 AM) RDW [11.5-14.5 %] 159 K/CMM (12/25/16 7:33 AM) 165 K/CMM (12/24/16 5:11 AM) 158 K/CMM (12/23/16 6:14 AM) Platelet [133-450 K/CMM] 7.8 fL (12/25/16 7:33 AM) 8.2 fL (12/24/16 5:11 AM) 8.4 fL (12/23/16 6:14 AM) MPV [7.4-10.4 fL] 50.8 % (12/25/16 7:33 AM) 50.1 % (12/24/16 5:11 AM) 59.1 % (12/23/16 6:14 AM) Segs [45.0-75.0 %] 32.8 % (12/25/16 7:33 AM) 30.3 % (12/24/16 5:11 AM) 24.9 % (12/23/16 6:14 AM) Lymphocytes [20.0-40.0 %] 14.2 % *HI* (12/25/16 7:33 AM) 16.9 % *HI* (12/24/16 5:11 AM) 13.9 % *HI* (12/23/16 6:14 AM) Monocytes [2.0-12.0 %] 1.5 % (12/25/16 7:33 AM) 2.0 % (12/24/16 5:11 AM) 1.6 % (12/23/16 6:14 AM) Eosinophils [0.0-4.0 %] 0.7 % (12/25/16 7:33 AM) 0.7 % (12/24/16 5:11 AM) 0.5 % (12/23/16 6:14 AM) Basophils [0.0-1.0 %] 2.0 K/CMM (12/25/16 7:33 AM) 2.3 K/CMM (12/24/16 5:11 AM) 2.7 K/CMM (12/23/16 6:14 AM) Segs-Bands # [1.5-8.1 K/CMM] 1.3 K/CMM (12/25/16 7:33 AM) 1.4 K/CMM (12/24/16 5:11 AM) 1.1 K/CMM (12/23/16 6:14 AM) Lymphocytes # [1.0-5.5 K/CMM] 0.6 K/CMM (12/25/16 7:33 AM) 0.8 K/CMM (12/24/16 5:11 AM) 0.6 K/CMM (12/23/16 6:14 AM) Monocytes # [0.0-0.8 K/CMM] 0.1 K/CMM (12/25/16 7:33 AM) 0.1 K/CMM (12/24/16 5:11 AM) 0.1 K/CMM (12/23/16 6:14 AM) Eosinophils # [0.0-0.5 K/CMM] 0.1 K/CMM (12/21/16 12:21 PM) 0.1 K/CMM (12/18/16 5:51 AM) Basophils # [0.0-0.2 K/CMM] 15.8 seconds *HI* (12/22/16 5:23 AM) 16.9 seconds *HI* (12/21/16 6:54 AM) 18.2 seconds *HI* (12/20/16 6:04 AM) PT [12.0-14.7 seconds] 1.23 *HI* (12/22/16 5:23 AM) 1.35 *HI* (12/21/16 6:54 AM) 1.48 *HI* (12/20/16 6:04 AM) INR [0.85-1.17] 32.9 seconds (12/22/16 5:23 AM) 33.0 seconds (12/21/16 6:54 AM) 32.7 seconds (12/20/16 6:04 AM) PTT [22.9-35.8 seconds] TUMOR MARKERS 1 2 3 Most recent to oldest [Reference Range]: 10.4 ng/mL (12/19/16 2:00 PM) 6.1 ng/mL (12/18/16 5:51 AM) AFP TM [0.0-11.0 ng/mL] MOLECULAR DIAGNOSTIC 1 2 3 Most recent to oldest [Reference Range]: 375661 IU/mL *NA* (12/19/16 2:00 PM) Hep B PCR Qnt 5.3 IU/mL *NA* (12/19/16 2:00 PM) HBV DNA Log10 RAPID 1 2 3 Most recent to oldest [Reference Range]: Negative (12/17/16 10:31 PM) Grp A Strep Scr [Negative] VIRAL - SEROLOGY 1 2 3 Most recent to oldest [Reference Range]: Negative (12/17/16 10:31 PM) Influ A [Negative] Negative (12/17/16 10:31 PM) Influ B [Negative] Immunizations No data available for this section Procedures Procedure Date Related Diagnosis Body Site Tonsillectomy Vasectomy Social History Social History Type Response Substance Abuse Use: None. Alcohol Past, Type Beer, Wine, Liquor. Frequency: 1-2 times per month. Smoking Status Never smoker; Exposure to Tobacco Smoke None; Cigarette Smoking Last 365 Days No; Reg Smoking Cessation Counseling No Assessment and Plan Extracted from: Title: Clinical Document Author: Gelacio Peoples MD Date: 12/25/16 Progress Note - Daily [facility] Completed: Dec, 12:55 by Gelacio Peoples MD RM: [address] - [address], [address] [id number] (: 1975) M Attending: Jimbo Berkowitz: Service: Internal Medicine Reason for Admission: ACUTE HEPATITIS, JAUNDICE . Working DRG: Disorders of liver except malig,cirr,alc hepa w CC Code status: None Specified=FULL CODECurrent diet: Isolation: None Documented Allergies: NKDA SUBJECTIVE doing great OBJECTIVE 24hr Labs 12/25 1225 Glucose HPR368 H 12/25 0733 Sodium Cnm232 L Potassium Lvl4.2 Chloride Lvl98 CO225 AGAP13.2 Glucose Fia726 H Creatinine Lvl0.86 BUN11 B/C Ratio13 Total Protein6.1 L Albumin Lvl2.4 L Globulin3.7 A/G Ratio0.6 L Calcium Lvl8.3 L OOO639 H PEC616 H Alk Zucb045 H Bili Total13.2 H nNQC081 Magnesium Lvl2.0 Phosphorus2.0 L WBC3.9 RBC4.89 Hgb14.6 Hct43.2 MCV88.3 MCH30.0 MCHC33.9 RDW14.7 H Kzoikqog588 MPV7.8 Segs50.8 Nvhphepaj71.2 H Oeqweozvvky56.8 Eosinophils1.5 Basophils0.7 Segs-Bands #2.0 Lymphocytes #1.3 Monocytes #0.6 Eosinophils #0.1 12/25 0728 Glucose IKE750 H 12/25 0321 Glucose VGX058 H 12/24 2130 Glucose VFO754 H 12/24 1618 Glucose ZPS158 H Steiner still necessary (Yes/No): Line still necessary (Yes/No): VitalsTmp(F)TsyxwCWHRRgM8HXV6 12/25 11:5399.653607/861891--- 12/25 08:0098.737957/144246--- 12/25 04:0098.609274/875171--- 12/25 00:0098.679989/7216------ 12/24 20:0098.175912/965431--- 24 Hr Tmax: 99.4F (37.44c) at 12/25 11:53Vital Signs are the last 5 in the past 48 hours. DateWt(kg)Wt(lb)Ht(cm)Ht(in)Method 12/18115.45 254.79954.34 71.00Measured 12/17 (initial)115.00 253.00Estimated 12/17180.34 71.00Stated I&ORecordInOutBal 1324hr Tot 120 0 120 1224hr Tot 2962 0 2962 Medications (17) Active Scheduled Meds (1): 12/20/16 insulin detemir (Levemir) 10 unit SUB-Q Bedtime Unscheduled Meds: None PRN Meds (15): 12/18/16 Dextrose 50% in Water IV (Dextrose 50% Syringe) 12.5 gm IVP PRN 12/18/16 Dextrose 50% in Water IV (Dextrose 50% Syringe) 25 gm IVP PRN 12/18/16 glucagon 1 mg IM PRN 12/18/16 insulin aspart 2 unit SUB-Q TID-Before Meals 12/18/16 insulin aspart 4 unit SUB-Q TID-Before Meals 12/18/16 insulin aspart 6 unit SUB-Q TID-Before Meals 12/18/16 insulin aspart 8 unit SUB-Q TID-Before Meals 12/18/16 insulin aspart 10 unit SUB-Q TID-Before Meals 12/18/16 insulin aspart 1 unit SUB-Q Bedtime 12/18/16 insulin aspart 2 unit SUB-Q Bedtime 12/18/16 insulin aspart 3 unit SUB-Q Bedtime 12/18/16 insulin aspart 4 unit SUB-Q Bedtime 12/18/16 ondansetron 4 mg IVP Q6H 12/17/16 sodium chloride (Saline Flush 0.9%) 10 mL IVP PRN 12/18/16 sodium chloride (Saline Flush 0.9%) 10 ml IVP PRN One Time Meds (1): 12/25/16 (Completed) potassium phosphate-sodium phosphate (PHOS-NaK) 1 pkt PO ONCE Continuous Infusions: None EXAM HEENT: EOM intact, + scleral icterus NECK: Supple CHEST: CTA B/L, No retractions, CVS: S1 and S2 WNL ABDOMEN: soft, BS +, no rebound, No guarding, No tenderness EXT: No edema, SKIN: jaundice NEURO: AAO x 3 IMPRESSION: 1. Acute hepatitis B. HBeAg Postive. Low Viral load 2. Ascitis: consistent with portal HTN: SAAG 1.4, - No Evidence of SBP; ANC - 89 3. Liver cirrhosis, Etiology: ? HBV, medications, or AIH (ASMA+ / Elevated IgM) 4. Acute liver failure - No evidence of encephalopathy - No evidence of audrey disease - Likely source HBV/Medications - Await Hepatitis Delta Virus. 5, Coagulapathy related to liver dysfunction 6. Thrombocytopenia related to portal hypertension and splenomegaly 7. Transaminitis. RECOMMENDATIONS: 1. Hepatitis B e antibody pending. 2. Cont mucomsyt - Acute liver failure: Non-tylenol induced 3. Hold all Tylenol products. 4. Continue to monitor PT, alpha-fetoprotein, phosphorus levels. These will service prognostic indicators for acute dysfunction/failure. 5. Phosphorus replacement today 6. Nutritional supplements. 7 . Await Hepatitis Delta Virus 8. Limit opiods 9. Elective Antiviral therapy with baraclude once transaminases improve. Overall seems to be improving: Improvement of PT and Low phosphorus levels. Okay to DC home. Repat LFt next week. Extracted from: Title: IR paracentesis Author: Andres Aggarwal MD Date: 12/19/16 HPI: Patient with PMH as stated below, with ascites. He has recent jaundice of unknown etiology. A paracentesis is requested. PMH/PSH: Diabetes Cellulitis Tonsillectomy Vasectomy Medications: Scheduled Meds (1):non-formulary (Please bring Pt's Own Adderall to pharmacy for labels) Unscheduled Meds: None PRN Meds (15):Dextrose 50% in Water IV (Dextrose 50% Syringe), Dextrose 50% in Water IV (Dextrose 50% Syringe), glucagon, insulin aspart, insulin aspart, insulin aspart, insulin aspart, insulin aspart, insulin aspart, insulin aspart, insulin aspart, insulin aspart, ondansetron, sodium chloride (Saline Flush 0.9%), sodium chloride (Saline Flush 0.9%) One Time Meds (1):(Ordered) acetylcysteine + D5W 200 mL (Acetadote + D5W 200 mL) Continuous Infusions (1):sodium chloride 0.9% 1000 ml INJ 1,000 mL Allergies: NKDA Review of systems: No fever, chills, bodyaches, chest pain, shortness of breath, N/V/D. ROS negative except as stated in HPI. VitalsTmp(F)[id number] 12/19 [id number]--- 12/19 [id number]--- 12/19 [id number]--- 12/19 [id number]--- 12/18 20:[id number]--- 24 Hr Tmax: 99.1F (37.28c) at 12/19 11:52Vital Signs are the last 5 in the past 48 hours. Physical Exam: General: No acute distress, awake/alert/oriented x 3. jaundiced Pulmonary: Lungs clear bilaterally, no rales or wheezes Cardiac: Regular rate and rhythm, no murmur Abdomen: Nontender, nondistended, no rebound or guarding The available relevant labs and imaging were reviewed. The Patient's ASA classification is 2. The Mallampati score is 2. The risks of the procedure, including pain, bleeding, infection, damage to adjacent structures, need for additional procedures, and any other procedure- specific risks were discussed with the patient and documented in the signed consent form. The patient understands and wishes to undergo the procedure. Will perform a paracentesis.
--- OUTSIDE RECORDS SUMMARY | 2019-04-12 15:01 | XMS REPORT | Continuity of Care Document ---
Author Author [facility] Interface Address Unknown Phone Unavailable Problems Problem Status Onset Date Classification Date Reported Comments Source OTHER Active 12/17/2016 [facility] ACUTE HEPATITIS, JAUNDICE Active 12/17/2016 [facility] ACUTE HEPATITIS, JAUNDICE Active 12/17/2016 [facility] ADD (<span ID="[id number]</span>) Active Problem 12/28/2016 [facility] Cellulitis Resolved Problem 12/28/2016 [facility] Diabetes Resolved Problem 12/28/2016 [facility] Psoriasis Active Problem 12/28/2016 [facility] Type 2 diabetes mellitus with diabetic chronic kidney disease Active Problem 12/28/2016 [facility] ACUTE VIRAL HEPATITIS, UNSPECIFIED Active [facility] UNSPECIFIED JAUNDICE Active [facility] Medications Medication Details Route Status Patient Instructions Ordering Provider Order Date Source QIANA-NaK 1 pkt, Route: PO, Drug Form: PDR/REC, Dosing Weight 115.455, kg, ONCE, Start date: 12/25/16 10:59:00 [employer], Stop date: 12/25/16 10:59:00 CSTNotes: (Same as: Phos-NaK) Each 1.5 gm pkt has 250mg phosphorous. Mix w/2.5oz water and stir. Inactive 12/25/2016 [facility] tramadol hydrochloride 50 MG Oral Tablet [Ultram] 50 mg=1 tab, PO, Q12H, # 20 tab, 0 Refill(s) Active 12/24/2016 [facility] potassium phosphate + sodium chloride 0.9% INJ 250 mL 15 mmol, 5 mL, Route: IVPB, ONCE, Dosing Weight 115.455, kg, Start date: 12/23/16 16:08:00 [employer], Stop date: 12/23/16 16:08:00 CSTNotes: (Same as: K Phosphate.) 1 mMol phoshate has 1.47 mEq potassium Infuse over 4 hours Inactive 12/23/2016 [facility] potassium phosphate + sodium chloride 0.9% INJ 250 mL 15 mmol, 5 mL, Route: IVPB, ONCE, Dosing Weight 115.455, kg, Start date: 12/23/16 7:51:00 [employer], Stop date: 12/23/16 7:51:00 CSTNotes: (Same as: K Phosphate.) 1 mMol phoshate has 1.47 mEq potassium Infuse over 4 hours Inactive 12/23/2016 [facility] PHOPeter-NaK 1 pkt, Route: PO, Drug Form: PDR/REC, Dosing Weight 115.455, kg, ONCE, Start date: 12/22/16 15:28:00 [employer], Stop date: 12/22/16 15:28:00 CSTNotes: (Same as: Phos-NaK) Each 1.5 gm pkt has 250mg phosphorous. Mix w/2.5oz water and stir. Inactive 12/22/2016 [facility] PHOS-NaK 1 pkt, Route: PO, Drug Form: PDR/REC, Dosing Weight 115.455, kg, ONCE, Start date: 12/21/16 9:02:00 [employer], Stop date: 12/21/16 9:02:00 CSTNotes: (Same as: Phos-NaK) Each 1.5 gm pkt has 250mg phosphorous. Mix w/2.5oz water and stir. Inactive 12/21/2016 [facility] Levemir 10 unit, 0.1 mL, Route: SUB-Q, Drug form: INJ, Bedtime, Dosing Weight 115.455, kg, Start date: 12/20/16 21:00:00 [employer], Duration: 30 day, Stop date: 01/18/17 21:00:00 CSTNotes: Same as Levemir Do not hold insulin without contacting prescriber WASTE: F/P - Black; E - Municipal Trash Bin "single patient use only" No Longer Active 12/21/2016 [facility] Acetylcysteine 200 MG/ML Inhalant Solution 16,100 mg, 80.5 mL, Route: PO, Drug form: SOLN, ONCE, Dosing Weight 115.455, kg, Start date: 12/20/16 19:38:00 [employer], Stop date: 12/20/16 19:38:00 CSTNotes: WASTE: F/P - Black; E - Municipal Trash Bin Inactive 12/21/2016 [facility] potassium chloride 40 mEq, 2 tab, Route: PO, Drug form: ERTAB, ONCE, Dosing Weight 115.455, kg, Start date: 12/20/16 8:43:00 [employer], Stop date: 12/20/16 8:43:00 CSTNotes: (Same as: K-Dur 20) "Do Not Crush" With food and full glass of water Inactive 12/20/2016 [facility] PHOPeter-NaK 1 pkt, Route: PO, Drug Form: PDR/REC, Dosing Weight 115.455, kg, ONCE, Start date: 12/20/16 8:13:00 [employer], Stop date: 12/20/16 8:13:00 CSTNotes: (Same as: EmyNaK) Each 1.5 gm pkt has 250mg phosphorous. Mix w/2.5oz water and stir. Inactive 12/20/2016 [facility] potassium phosphate 1.45 gm, Route: PO, ONCE, Dosing Weight 115.455, kg, Start date: 12/20/16 6:56:00 [employer], Stop date: 12/20/16 6:56:00 [employer] Inactive 12/20/2016 [facility] Dilaudid 0.5 mg, 0.5 mL, Route: IV, Drug form: INJ, Q4H, Dosing Weight 115.455, kg, PRN Pain Score 7-10, Start date: 12/20/16 1:26:00 [employer], Duration: 30 day, Stop date: 01/19/17 1:25:00 [employer] No Longer Active 12/20/2016 [facility] Acetadote 15,000 mg, 75 mL, Route: IV, Drug form: SOLN, ONCE, Dosing Weight 115.455, kg, Start date: 12/19/16 14:41:00 [employer], Stop date: 12/19/16 14:41:00 CSTNotes: (Same as: Acetadote) MEDICATION WASTE P roduct Size: 6000 mg Product Wasted: ___ mg WASTE: F/P - Black; E - Municipal Trash Bin Inactive 12/19/2016 [facility] Adderall XR 10 mg, Route: PO, Drug form: ERCAP, Before Lunch, Dosing Weight 115.455, kg, Start date: 12/19/16 11:30:00 [employer], Duration: 30 day, Stop date: 01/17/17 11:30:00 [employer] Inactive 12/19/2016 [facility] Adderall 30 mg, Route: PO, Drug form: TAB, QAM, Dosing Weight 115.455, kg, Start date: 12/19/16 9:00:00 [employer], Duration: 30 day, Stop date: 01/17/17 9:00:00 [employer] Inactive 12/19/2016 [facility] Please bring Pt's Own Adderall to pharmacy for labels Please bring Pt's Own Adderall to pharmacy for labels, Reminder, Drug form: MISC, Route: MISC, Q12H, 12/18/16 15:00:00 [employer], Duration: 30 day, Stop date: 01/17/17 9:00:00 [employer] No Longer Active 12/18/2016 [facility] Ibuprofen 400 mg, 1 tab, Route: PO, Drug form: TAB, Q4H, Dosing Weight 115.455, kg, PRN Pain 1-3/Temp > 100.4 F, Start date: 12/18/16 14:51:00 [employer], Duration: 30 day, Stop date: 01/17/17 14:50:00 CSTNotes: (Same as: Motrin) "Do Not Crush" Give with food. No Longer Active 12/18/2016 [facility] Tramadol 50 mg, 1 tab, Route: PO, Drug form: TAB, Q6H, Dosing Weight 115.455, kg, PRN Pain Score 4-6, Start date: 12/18/16 14:51:00 [employer], Duration: 30 day, Stop date: 01/17/17 14:50:00 CSTNotes: Not to exceed 400mg/day. (Same As: Ultram) No Longer Active 12/18/2016 [facility] Insulin, Aspart, Human 8 unit, 0.08 mL, Route: SUB-Q, Drug form: SOLN, TID-Before Meals, Dosing Weight 115.455, kg, PRN Blood Glucose Results, Start date: 12/18/16 14:49:00 [employer], Duration: 30 day, Stop date: 01/17/17 14:48:00 CSTNotes: Roll in palms of hands gently; Do not shake vigorously. (Same as: NovoLOG) "single patient use only" WASTE: F/P - Black; E - Municipal Trash Bin Stable for 28 days at room temperature. Expires in days from Date No Longer Active 12/18/2016 [facility] Glucagon 1 mg, Route: IM, Drug form: PDR/INJ, PRN, Dosing Weight 115.455, kg, PRN Blood Glucose Results, Start date: 12/18/16 14:49:00 [employer], Duration: 30 day, Stop date: 01/17/17 14:48:00 [employer] No Longer Active 12/18/2016 [facility] Dextrose 50% Syringe 25 gm, 50 mL, Route: IVP, Drug Form: INJ, Dosing Weight 115.455, kg, PRN, PRN Blood Glucose Results, Start date: 12/18/16 14:49:00 [employer], Duration: 30 day, Stop date: 01/17/17 14:48:00 [employer] No Longer Active 12/18/2016 [facility] Insulin, Aspart, Human 8 unit, 0.08 mL, Route: SUB-Q, Drug form: SOLN, TID-Before Meals, Dosing Weight 115.455, kg, PRN Blood Glucose Results, Start date: 12/18/16 4:01:00 [employer], Duration: 30 day, Stop date: 01/17/17 4:00:00 CSTNotes: Roll in palms of hands gently; Do not shake vigorously. (Same as: NovoLOG) "single patient use only" WASTE: F/P - Black; E - Municipal Trash Bin Stable for 28 days at room temperature. Expires in days from Date Inactive 12/18/2016 [facility] Glucagon 1 mg, Route: IM, Drug form: PDR/INJ, PRN, Dosing Weight 115.455, kg, PRN Blood Glucose Results, Start date: 12/18/16 4:01:00 [employer], Duration: 30 day, Stop date: 01/17/17 4:00:00 [employer] Inactive 12/18/2016 [facility] Dextrose 50% Syringe 25 gm, 50 mL, Route: IVP, Drug Form: INJ, Dosing Weight 115.455, kg, PRN, PRN Blood Glucose Results, Start date: 12/18/16 4:01:00 [employer], Duration: 30 day, Stop date: 01/17/17 4:00:00 [employer] Inactive 12/18/2016 [facility] Saline Flush 0.9% 10 ml, Route: IVP, Drug Form: INJ, Dosing Weight 115, kg, PRN, PRN Line Flush, Start date: 12/18/16 3:23:00 [employer], Duration: 30 day, Stop date: 01/17/17 3:22:00 CSTNotes: (Same as: BD Posiflush) No Longer Active 12/18/2016 [facility] Sodium Chloride 0.154 MEQ/ML Injectable Solution 1,000 mL, Rate: 100 ml/hr, Infuse over: 10 hr, Route: IV, Dosing Weight 115 kg, Total Volume: 1,000, Start date: 12/18/16 3:23:00 [employer], Duration: 30 day, Stop date: 01/17/17 3:22:00 [employer] No Longer Active 12/18/2016 [facility] Ondansetron 4 mg, 2 mL, Route: IVP, Drug form: INJ, Q6H, Dosing Weight 115, kg, PRN Nausea & Vomiting, Start date: 12/18/16 3:23:00 [employer], Duration: 30 day, Stop date: 01/17/17 3:22:00 CSTNotes: (Same as: Zofran) MEDICATION WASTE Product Size: 4 mg Product Wasted: ___ mg No Longer Active 12/18/2016 [facility] Morphine 2 mg, 1 mL, Route: IVP, Drug form: INJ, Q4H, Dosing Weight 115, kg, PRN Pain Score 7-10, Start date: 12/18/16 3:23:00 [employer], Duration: 30 day, Stop date: 01/17/17 3:22:00 CSTNotes: (Same as:MORPhine Ramirez lfate) No Longer Active 12/18/2016 [facility] Magnesium Sulfate 1 gm, 100 mL, Route: IVPB, Drug form: INJ, PRN, Dosing Weight 115, kg, PRN Abnormal Lab Result, For NON-ICU Patients Only., Start date: 12/18/16 3:22:00 [employer], Duration: 30 day, Stop date: 01/17/17 3:21:00 CSTNotes: WASTE: F/P - Sink; E - Municipal Trash Bin Inactive 12/18/2016 [facility] sodium phosphate + D5W 250 mL 15 mmol, 5 mL, Route: IVPB, PRN, Dosing Weight 115, kg, PRN Abnormal Lab Result, For NON-ICU Patients Only., Start date: 12/18/16 3:22:00 [employer], Duration: 30 day, Stop date: 01/17/17 3:21:00 [employer] Inactive 12/18/2016 [facility] potassium phosphate + sodium chloride 0.9% INJ 250 mL 30 mmol, 10 mL, Route: IVPB, PRN, Dosing Weight 115, kg, PRN Abnormal Lab Result, For NON-ICU Patients Only., Start date: 12/18/16 3:22:00 [employer], Duration: 30 day, Stop date: 01/17/17 3:21:00 CSTNotes: (Same as: K Phosphate.) 1 mMol phoshate has 1.47 mEq potassium Infuse over 4 hours Inactive 12/18/2016 [facility] potassium chloride 10 mEq, 100 mL, Route: IVPB, Drug form: INJ, PRN, Dosing Weight 115, kg, PRN Abnormal Lab Result, For NON-ICU Patients Only, Start date: 12/18/16 3:22:00 [employer], Duration: 30 day, Stop date: 01/17/17 3: 21:00 CSTNotes: Infuse at a rate of 10 mEq/hr. (Same as: KCL) Inactive 12/18/2016 [facility] potassium phosphate-sodium phosphate 250 mg-280 mg-160 mg oral powder for reconstitution 2 pkt, Route: PO, Drug Form: PDR/REC, Dosing Weight 115, kg, PRN, PRN Abnormal Lab Result, For NON-ICU Patients Only, Start date: 12/18/16 3:22:00 [employer], Duration: 30 day, Stop date: 01/17/17 3:21:00 CSTNotes: (Same as: Phos-NaK) Each 1.5 gm pkt has 250mg phosphorous. Mix w/2.5oz water and stir. Inactive 12/18/2016 [facility] Calcium Gluconate 2 gm, 20 mL, Route: IVPB, PRN, Dosing Weight 115, kg, PRN Abnormal Lab Result, For NON-ICU Patients Only., Start date: 12/18/16 3:22:00 [employer], Duration: 30 day, Stop date: 01/17/17 3:21:00 CSTNotes: WASTE: F/P - Sink; E - Municipal Trash Bin Inactive 12/18/2016 [facility] Magnesium Oxide 800 mg, 2 tab, Route: PO, Drug form: TAB, PRN, Dosing Weight 115, kg, PRN Abnormal Lab Result, For NON-ICU Patients Only., Start date: 12/18/16 3:22:00 [employer], Duration: 30 day, Stop date: 01/17/17 3:21:00 CSTNotes: (Same as: Mag-Ox 400) Magnesium oxide [id number] elemental magnesium Dose=____mg magnesium oxide (___mg elemental magnesium) Inactive 12/18/2016 [facility] Insulin regular 4 unit, 0.04 mL, Route: IVP, Drug form: INJ, ONCE, Dosing Weight 115, kg, Priority: STAT, Start date: 12/18/16 1:02:00 [employer], Stop date: 12/18/16 1:02:00 CSTNotes: (Same as: Humulin R and NovoLIN R) W ASTE: F/P - Black; E - Municipal Trash Bin (Do not shake) Inactive 12/18/2016 [facility] potassium chloride 20 mEq oral tablet, extended release 40 mEq, 2 tab, Route: PO, Drug form: ERTAB, ONCE, Dosing Weight 115, kg, Priority: STAT, Start date: 12/18/16 1:02:00 [employer], Stop date: 12/18/16 1:02:00 CSTNotes: (Same as: K-Dur 20) "Do Not Crush" With food and full glass of water Inactive 12/18/2016 [facility] 24 HR Amphetamine aspartate 2.5 MG / Amphetamine Sulfate 2.5 MG / Dextroamphetamine saccharate 2.5 MG / Dextroamphetamine Sulfate 2.5 MG Extended Release Capsule [Adderall] 10 mg=1 cap, PO, Before Lunch, 0 Refill(s) No Longer Active 12/18/2016 [facility] Amphetamine aspartate 7.5 MG / Amphetamine Sulfate 7.5 MG / Dextroamphetamine saccharate 7.5 MG / Dextroamphetamine Sulfate 7.5 MG Oral Tablet [Adderall] 30 mg=1 tab, PO, QAM, 0 Refill(s) Active 12/18/2016 [facility] dapagliflozin propanediol 10 MG Oral Tablet [Farxiga] 10 mg=1 tab, PO, Daily, 0 Refill(s) Active 12/18/2016 [facility] sodium chloride 0.9% INJ 250 mL 250 mL, Rate: Data Entry for use with blood product administration., Dosing Weight 115, kg, Route: IV, Total Volume: 250, Priority: Routine, Start Date: 12/17/16 21:59:00 [employer], Duration: 1 day, Stop date: 12/18/16 21:58:00 [employer], Replace Every: 24 hr No Longer Active 12/18/2016 [facility] Sodium Chloride 0.154 MEQ/ML Injectable Solution 1,000 mL, Rate: 125 ml/hr, Infuse over: 8 hr, Route: IV, Dosing Weight 115 kg, Total Volume: 1,000, Start date: 12/17/16 21:58:00 [employer], Duration: 30 day, Stop date: 01/16/17 21:57:00 [employer] No Longer Active 12/18/2016 [facility] Saline Flush 0.9% 10 mL, Route: IVP, Drug Form: INJ, Dosing Weight 115, kg, PRN, PRN Line Flush, Start date: 12/17/16 21:58:00 [employer], Duration: 30 day, Stop date: 01/16/17 21:57:00 CSTNotes: (Same as: BD Posiflush) No Longer Active 12/18/2016 [facility] Allergies, Adverse Reactions, Alerts Substance Category Reaction Severity Reaction type Status Date Reported Comments Source Immunizations Immunization Date Given Site Status Last Updated Comments Source Results Order Name Results Value Reference Range Date Interpretation Comments Source CHEM PANEL Phosphorus 2.0 mg/dL 2.5 - 4.5 12/25/2016 [facility] CHEM PANEL A/G Ratio 0.6 0.7 - 1.6 12/25/2016 [facility] CHEM PANEL Globulin 3.7 g/dL 2.7 - 4.2 12/25/2016 [facility] CHEM PANEL B/C Ratio 13 6 - 25 12/25/2016 [facility] CHEM PANEL AGAP 13.2 meq/L 10.0 - 20.0 12/25/2016 [facility] CHEM PANEL eGFR 108 mL/min/1.73m2 12/25/2016 Result Comment: The eGFR is calculated using the [...] from the National Kidney Disease Education Program (NKDEP) which additionally recommends that when the eGFR is used in patients with extremes of body mass index for purposes of drug dosing, the eGFR should be multiplied by the estimated BMI. [facility] CHEM PANEL Bili Total 13.2 mg/dL 0.2 - 1.3 12/25/2016 [facility] CHEM PANEL Albumin Lvl 2.4 g/dL 3.5 - 5.0 12/25/2016 [facility] CHEM PANEL ALT 698 unit/L 0 - 65 12/25/2016 [facility] CHEM PANEL AST 207 unit/L 0 - 37 12/25/2016 [facility] CHEM PANEL Calcium Lvl 8.3 mg/dL 8.5 - 10.5 12/25/2016 [facility] CHEM PANEL CO2 25 meq/L 24 - 32 12/25/2016 [facility] CHEM PANEL Total Protein 6.1 g/dL 6.4 - 8.4 12/25/2016 [facility] CHEM PANEL Alk Phos 273 unit/L 39 - 136 12/25/2016 [facility] CHEM PANEL Creatinine Lvl 0.86 mg/dL 0.50 - 1.40 12/25/2016 [facility] CHEM PANEL Sodium Lvl 132 meq/L 135 - 145 12/25/2016 [facility] CHEM PANEL Potassium Lvl 4.2 meq/L 3.5 - 5.1 12/25/2016 [facility] CHEM PANEL Chloride Lvl 98 meq/L 95 - 109 12/25/2016 [facility] CHEM PANEL Glucose Lvl 185 mg/dL 70 - 99 12/25/2016 [facility] CHEM PANEL BUN 11 mg/dL 7 - 22 12/25/2016 [facility] CHEM PANEL Magnesium Lvl 2.0 mg/dL 1.8 - 2.4 12/25/2016 [facility] HEMATOLOGY Eosinophils # 0.1 K/CMM 0.0 - 0.5 12/25/2016 [facility] HEMATOLOGY Monocytes # 0.6 K/CMM 0.0 - 0.8 12/25/2016 [facility] HEMATOLOGY Lymphocytes # 1.3 K/CMM 1.0 - 5.5 12/25/2016 [facility] Segs 50.8 % 45.0 - 75.0 12/25/2016 [facility] Monocytes 14.2 % 2.0 - 12.0 12/25/2016 [facility] Lymphocytes 32.8 % 20.0 - 40.0 12/25/2016 [facility] Segs-Bands # 2.0 K/CMM 1.5 - 8.1 12/25/2016 [facility] Basophils 0.7 % 0.0 - 1.0 12/25/2016 [facility] Eosinophils 1.5 % 0.0 - 4.0 12/25/2016 [facility] MCH 30.0 pg 27.0 - 31.0 12/25/2016 [facility] MCV 88.3 fL 80.0 - 94.0 12/25/2016 [facility] MPV 7.8 fL 7.4 - 10.4 12/25/2016 [facility] Platelet 159 K/CMM 133 - 450 12/25/2016 [facility] MCHC 33.9 g/dL 32.0 - 36.0 12/25/2016 [facility] RDW 14.7 % 11.5 - 14.5 12/25/2016 [facility] Hct 43.2 % 42.0 - 54.0 12/25/2016 [facility] Hgb 14.6 g/dL 14.0 - 18.0 12/25/2016 [facility] WBC 3.9 K/CMM 3.7 - 10.4 12/25/2016 [facility] RBC 4.89 M/CMM 4.70 - 6.10 12/25/2016 [facility] Chest 2 views DX Chest 2 views DX EXAM: XR CHEST 2 VIEW DATE: 12/24/2016 3:00 AM [employer] INDICATION: Coughing. COMPARISON: None Available. TECHNIQUE: PA and lateral views of the chest were obtained. FINDINGS: Few scattered linear opacities are compatible with subsegmental atelectasis. No focal consolidation or pneumothorax is identified. The cardiomediastinal silhouette is within normal limits. The costophrenic recesses are sharp and without effusion. No acute osseous abnormality is identified. IMPRESSION: No acute cardiopulmonary abnormality. SL: [id number] 12/24/2016 - - Read by: Caleb Kemp MD Dictated Date/time: 12/24/16 20:32 Electronically Signed by: Caleb Kemp MD 12/24/16 20:32 FINAL REPORT [facility] CHEM PANEL Phosphorus 2.5 mg/dL 2.5 - 4.5 12/24/2016 [facility] CHEM PANEL Magnesium Lvl 2.0 mg/dL 1.8 - 2.4 12/24/2016 [facility] CHEM PANEL Bili Total 14.6 mg/dL 0.2 - 1.3 12/24/2016 [facility] CHEM PANEL eGFR 122 mL/min/1.73m2 12/24/2016 Result Comment: The eGFR is calculated using the [...] from the National Kidney Disease Education Program (NKDEP) which additionally recommends that when the eGFR is used in patients with extremes of body mass index for purposes of drug dosing, the eGFR should be multiplied by the estimated BMI. [facility] CHEM PANEL Globulin 2.8 g/dL 2.7 - 4.2 12/24/2016 [facility] CHEM PANEL Albumin Lvl 2.4 g/dL 3.5 - 5.0 12/24/2016 [facility] CHEM PANEL Total Protein 5.2 g/dL 6.4 - 8.4 12/24/2016 [facility] CHEM PANEL B/C Ratio 11 6 - 25 12/24/2016 [facility] CHEM PANEL Calcium Lvl 8.0 mg/dL 8.5 - 10.5 12/24/2016 [facility] CHEM PANEL Alk Phos 239 unit/L 39 - 136 12/24/2016 [facility] CHEM PANEL ALT 951 unit/L 0 - 65 12/24/2016 [facility] CHEM PANEL AST 259 unit/L 0 - 37 12/24/2016 [facility] CHEM PANEL A/G Ratio 0.9 0.7 - 1.6 12/24/2016 [facility] CHEM PANEL Sodium Lvl 134 meq/L 135 - 145 12/24/2016 [facility] CHEM PANEL Creatinine Lvl 0.64 mg/dL 0.50 - 1.40 12/24/2016 [facility] CHEM PANEL BUN 7 mg/dL 7 - 22 12/24/2016 [facility] CHEM PANEL Glucose Lvl 141 mg/dL 70 - 99 12/24/2016 [facility] CHEM PANEL CO2 24 meq/L 24 - 32 12/24/2016 [facility] CHEM PANEL AGAP 16.0 meq/L 10.0 - 20.0 12/24/2016 [facility] CHEM PANEL Chloride Lvl 98 meq/L 95 - 109 12/24/2016 [facility] CHEM PANEL Potassium Lvl 4.0 meq/L 3.5 - 5.1 12/24/2016 [facility] HEMATOLOGY WBC 4.5 K/CMM 3.7 - 10.4 12/24/2016 [facility] MPV 8.2 fL 7.4 - 10.4 12/24/2016 [facility] HEMATOLOGY RDW 14.8 % 11.5 - 14.5 12/24/2016 [facility] MCH 30.7 pg 27.0 - 31.0 12/24/2016 [facility] Platelet 165 K/CMM 133 - 450 12/24/2016 [facility] MCHC 35.5 g/dL 32.0 - 36.0 12/24/2016 [facility] Hct 41.9 % 42.0 - 54.0 12/24/2016 [facility] MCV 86.7 fL 80.0 - 94.0 12/24/2016 [facility] Hgb 14.9 g/dL 14.0 - 18.0 12/24/2016 [facility] RBC 4.84 M/CMM 4.70 - 6.10 12/24/2016 [facility] Lymphocytes # 1.4 K/CMM 1.0 - 5.5 12/24/2016 [facility] Segs-Bands # 2.3 K/CMM 1.5 - 8.1 12/24/2016 [facility] HEMATOLOGY Basophils 0.7 % 0.0 - 1.0 12/24/2016 [facility] HEMATOLOGY Eosinophils 2.0 % 0.0 - 4.0 12/24/2016 [facility] HEMATOLOGY Monocytes 16.9 % 2.0 - 12.0 12/24/2016 [facility] Lymphocytes 30.3 % 20.0 - 40.0 12/24/2016 [facility] HEMATOLOGY Segs 50.1 % 45.0 - 75.0 12/24/2016 [facility] Eosinophils # 0.1 K/CMM 0.0 - 0.5 12/24/2016 [facility] HEMATOLOGY Monocytes # 0.8 K/CMM 0.0 - 0.8 12/24/2016 [facility] CARDIAC ENZYMES Total CK 37 unit/L 12 - 191 12/23/2016 [facility] CHEM PANEL Magnesium Lvl 1.9 mg/dL 1.8 - 2.4 12/23/2016 [facility] CHEM PANEL Albumin Lvl 2.2 g/dL 3.5 - 5.0 12/23/2016 [facility] CHEM PANEL Globulin 3.1 g/dL 2.7 - 4.2 12/23/2016 [facility] CHEM PANEL Total Protein 5.3 g/dL 6.4 - 8.4 12/23/2016 [facility] CHEM PANEL B/C Ratio 14 6 - 25 12/23/2016 [facility] CHEM PANEL Alk Phos 209 unit/L 39 - 136 12/23/2016 [facility] CHEM PANEL A/G Ratio 0.7 0.7 - 1.6 12/23/2016 [facility] CHEM PANEL ALT 1211 unit/L 0 - 65 12/23/2016 [facility] CHEM PANEL AST 354 unit/L 0 - 37 12/23/2016 [facility] CHEM PANEL Bili Total 13.6 mg/dL 0.2 - 1.3 12/23/2016 [facility] CHEM PANEL eGFR 122 mL/min/1.73m2 12/23/2016 Result Comment: The eGFR is calculated using the [...] from the National Kidney Disease Education Program (NKDEP) which additionally recommends that when the eGFR is used in patients with extremes of body mass index for purposes of drug dosing, the eGFR should be multiplied by the estimated BMI. [facility] CHEM PANEL AGAP 13.6 meq/L 10.0 - 20.0 12/23/2016 [facility] CHEM PANEL Calcium Lvl 7.7 mg/dL 8.5 - 10.5 12/23/2016 [facility] CHEM PANEL Chloride Lvl 101 meq/L 95 - 109 12/23/2016 [facility] CHEM PANEL Potassium Lvl 3.6 meq/L 3.5 - 5.1 12/23/2016 [facility] CHEM PANEL CO2 22 meq/L 24 - 32 12/23/2016 [facility] CHEM PANEL BUN 9 mg/dL 7 - 22 12/23/2016 [facility] CHEM PANEL Glucose Lvl 202 mg/dL 70 - 99 12/23/2016 [facility] CHEM PANEL Sodium Lvl 133 meq/L 135 - 145 12/23/2016 [facility] CHEM PANEL Creatinine Lvl 0.64 mg/dL 0.50 - 1.40 12/23/2016 [facility] CHEM PANEL Phosphorus 1.5 mg/dL 2.5 - 4.5 12/23/2016 Result Comment: Critical Result(s) called to Kenyon Arciniega at 12/23/2016 07:40 by Kathy Cabrera. Read back OK. [facility] HEMATOLOGY Eosinophils 1.6 % 0.0 - 4.0 12/23/2016 [facility] HEMATOLOGY Segs 59.1 % 45.0 - 75.0 12/23/2016 [facility] HEMATOLOGY Monocytes 13.9 % 2.0 - 12.0 12/23/2016 [facility] HEMATOLOGY Lymphocytes 24.9 % 20.0 - 40.0 12/23/2016 [facility] HEMATOLOGY Eosinophils # 0.1 K/CMM 0.0 - 0.5 12/23/2016 [facility] HEMATOLOGY Monocytes # 0.6 K/CMM 0.0 - 0.8 12/23/2016 [facility] HEMATOLOGY Lymphocytes # 1.1 K/CMM 1.0 - 5.5 12/23/2016 [facility] HEMATOLOGY Segs-Bands # 2.7 K/CMM 1.5 - 8.1 12/23/2016 [facility] HEMATOLOGY Basophils 0.5 % 0.0 - 1.0 12/23/2016 [facility] HEMATOLOGY Hgb 14.3 g/dL 14.0 - 18.0 12/23/2016 [facility] HEMATOLOGY RBC 4.86 M/CMM 4.70 - 6.10 12/23/2016 [facility] HEMATOLOGY WBC 4.6 K/CMM 3.7 - 10.4 12/23/2016 [facility] MCH 29.5 pg 27.0 - 31.0 12/23/2016 [facility] HEMATOLOGY MCV 87.1 fL 80.0 - 94.0 12/23/2016 [facility] Hct 42.3 % 42.0 - 54.0 12/23/2016 [facility] RDW 14.4 % 11.5 - 14.5 12/23/2016 [facility] MPV 8.4 fL 7.4 - 10.4 12/23/2016 [facility] Platelet 158 K/CMM 133 - 450 12/23/2016 [facility] MCHC 33.9 g/dL 32.0 - 36.0 12/23/2016 [facility] PTT 32.9 s 22.9 - 35.8 12/22/2016 [facility] PT 15.8 s 12.0 - 14.7 12/22/2016 [facility] INR 1.23 0.85 - 1.17 12/22/2016 [facility] Basophils # 0.1 K/CMM 0.0 - 0.2 12/21/2016 [facility] INR 1.35 0.85 - 1.17 12/21/2016 [facility] PT 16.9 s 12.0 - 14.7 12/21/2016 [facility] PTT 33.0 s 22.9 - 35.8 12/21/2016 [facility] Hep D Ab Negative Negative 12/20/2016 Result Comment: The Hepatitis D Virus total antibody CJ is a competitive immunoassay. A positive result indicates that antibodies against Hepatitis D are present, but it does not distinguish which isotype of antibody is present. This test was developed and its performance characteristics determined by [employer]. It has not been cleared or approved by the U.[place]. Food and Drug Administration. Results should be used in conjunction with clinical findings, and should not form the sole basis for a diagnosis or treatment decision. Performed At: [facility] [employer] [address] [place], [place] [id number] Jack Jules PhD Ph:[phone] [facility] HSV 2 IgG null <=0.8 AI 12/20/2016 [facility] HSV 2 IgG null <=0.8 AI 12/20/2016 [facility] HSV 1 IgG null <=0.8 AI 12/20/2016 [facility] CMV IgG Non Reactive *NA* (12/20/16 2:49 PM) Non Reactive 12/20/2016 [facility] IgA Lvl 133.0 mg/dL 68.0 - 378.0 12/20/2016 [facility] IMMUNOLOGY IgG Lvl 997 mg/dL 694 - 1618 12/20/2016 [facility] IMMUNOLOGY IgM Lvl 349.0 mg/dL 60.0 - 263.0 12/20/2016 [facility] EBV Early Ab null <=0.8 AI 12/20/2016 [facility] EBV VCA IgG null <=0.8 AI 12/20/2016 [facility] EBV VCA IgM null <=0.8 AI 12/20/2016 [facility] CMV IgM 0.6 S/CO Ratio 12/20/2016 [facility] CHEM PANEL Bili Direct 12.8 mg/dL 0.0 - 0.3 12/20/2016 [facility] CHEM PANEL Bili Indirect 3.3 mg/dL 0.0 - 1.0 12/20/2016 [facility] HEMATOLOGY INR 1.48 0.85 - 1.17 12/20/2016 [facility] HEMATOLOGY PT 18.2 s 12.0 - 14.7 12/20/2016 [facility] HEMATOLOGY PTT 32.7 s 22.9 - 35.8 12/20/2016 [facility] DRUG SCREEN U Amph Scr Negative *NA* (12/19/16 4:44 PM) Negative 12/19/2016 [facility] DRUG SCREEN U Sariah Scr Negative *NA* (12/19/16 4:44 PM) Negative 12/19/2016 [facility] DRUG SCREEN U Benzodia Scr Negative *NA* (12/19/16 4:44 PM) Negative 12/19/2016 [facility] DRUG SCREEN U Cocaine Scr Negative *NA* (12/19/16 4:44 PM) Negative 12/19/2016 [facility] DRUG SCREEN U Opiate Scr Negative *NA* (12/19/16 4:44 PM) Negative 12/19/2016 [facility] DRUG SCREEN U Cannab Scr Negative *NA* (12/19/16 4:44 PM) Negative 12/19/2016 [facility] DRUG SCREEN U Phencyc Scr Negative *NA* (12/19/16 4:44 PM) Negative 12/19/2016 [facility] DRUG SCREEN U Methadone Scr Negative *NA* (12/19/16 4:44 PM) Negative 12/19/2016 [facility] DRUG SCREEN U Propoxyph Scr Negative *NA* (12/19/16 4:44 PM) Negative 12/19/2016 [facility] DRUG SCREEN UDS Note See Note (12/19/16 4:44 PM) 12/19/2016 [facility] BODY FLUIDS LDH BF Type Ascites *NA* (12/19/16 3:54 PM) 12/19/2016 [facility] BODY FLUIDS LDH BF 94 unit/L 12/19/2016 [facility] BODY FLUIDS Alb BF Type Ascites *NA* (12/19/16 3:54 PM) 12/19/2016 [facility] BODY FLUIDS Albumin BF 1.3 g/dL 12/19/2016 [facility] BODY FLUIDS Protein BF 2.5 g/dL 12/19/2016 [facility] BODY FLUIDS Prot BF Type Ascites *NA* (12/19/16 3:54 PM) 12/19/2016 [facility] BODY FLUIDS Color BF Red *ABN* (12/19/16 3:54 PM) Colorless 12/19/2016 [facility] BODY FLUIDS Macrophage BF 2 % 12/19/2016 [facility] BODY FLUIDS CellCnt BF Type Ascites (12/19/16 3:54 PM) 12/19/2016 [facility] BODY FLUIDS Clarity BF Slight Cloudy (12/19/16 3:54 PM) Clear 12/19/2016 [facility] BODY FLUIDS Comment BF Rare atypical cells present, favor reactive atypical mesothelial cells. Macrophages and blood elements. Per Dr. Hernandez. 12/20/2016 09:16 GANT 12/19/2016 [facility] BODY FLUIDS WBC BF 445 /mm3 12/19/2016 [facility] BODY FLUIDS RBC BF 6750 /mm3 12/19/2016 [facility] BODY FLUIDS Lymph BF 78 % 12/19/2016 Result Comment: Made correction call to Maeve Del Real. 12/20/2016 09:26 GANT [facility] BODY FLUIDS Segs BF 20 % 12/19/2016 Result Comment: Made correction call to Maeve Del Real. 12/20/2016 09:26 GANT [facility] TOXICOLOGY Acetaminoph Lvl <2
(12/19/16 2:41 PM) 10 - 20 12/19/2016 [facility] CHEM PANEL GGT 813 unit/L 5 - 85 12/19/2016 [facility] CHEM PANEL Ammonia 45.0 umol/L <=45.0 uMol/L 12/19/2016 [facility] IMMUNOLOGY CERULOPLASMIN 27 mg/dL 20 - 60 12/19/2016 [facility] IMMUNOLOGY AMA Ab Scr Negative (12/19/16 2:00 PM) Negative 12/19/2016 [facility] IMMUNOLOGY TREV Negative 1 (12/19/16 2:00 PM) Negative 12/19/2016 Result Comment: Moderate Cytoplasmic staining present. [facility] A-1-AT 175 mg/dL 83 - 199 12/19/2016 [facility] SMA Titer 1:80 *ABN* (12/19/16 2:00 PM) Negative 12/19/2016 [facility] HIV 1/2 Ab Negative *NA* (12/19/16 2:00 PM) Negative 12/19/2016 [facility] Hep Be Ag Positive Negative 12/19/2016 Result Comment: Performed At: [facility] [address] [id number] Du Parbhakar MD Ph:[phone] [facility] Hep A IgM Negative *NA* (12/19/16 2:00 PM) Negative 12/19/2016 [facility] Hep Be Ab Negative Negative 12/19/2016 Result Comment: Performed At: [facility] [address] [id number] Marco Gomez MD Ph:[phone] [facility] SMA Screen Positive *ABN* (12/19/16 2:00 PM) Negative 12/19/2016 [facility] MOLECULAR DIAGNOSTIC HBV DNA Log10 5.3 [iU]/mL 12/19/2016 [facility] MOLECULAR DIAGNOSTIC Hep B PCR Qnt [id number] [iU]/mL 12/19/2016 [facility] TUMOR MARKERS AFP 10.4 ng/mL 0.0 - 11.0 12/19/2016 [facility] Paracentesis w ultrasound guide VR Paracentesis w ultrasound guide VR Paracentesis with Ultrasound Guidance CLINICAL INFORMATION: Patient with ascites. CONSENT: The procedure, risks, benefits and alternatives were discussed with the patient and written informed consent was obtained. PROCEDURE: With the patient in the supine position focused abdominal ultrasound was performed to identify a suitable pocket of fluid for percutaneous drainage. The patient was then prepped and draped in the usual sterile fashion. Maximal sterile barrier precautions were used. After administering local anesthesia, a 5 Mongolian catheter was placed into the peritoneal cavity under ultrasound guidance. An ultrasound image was printed, scanned, and saved into the permanent medical record. Approximately 1500 milliliters of straw-colored fluid was aspirated. The fluid was sent for routine analysis including cell count, stain, and cultures. The patient tolerated the procedure well and there were no immediate complications. The catheter was removed at the end of the procedure. IMPRESSION: Ultrasound-guided paracentesis as described above. Again, 1500 milliliters of fluid were aspirated. SL: [id number] 12/19/2016 - - Read by: Andres Aggarwal MD Dictated Date/time: 12/19/16 16:38 Electronically Signed by: Andres Aggarwal MD 12/19/16 16:39 FINAL REPORT [facility] CHEM PANEL Bili Direct 13.3 mg/dL 0.0 - 0.3 12/19/2016 [facility] CHEM PANEL Bili Indirect 3.2 mg/dL 0.0 - 1.0 12/19/2016 [facility] Abdomen wo contrast MRI Abdomen wo contrast MRI Patient Name: ANA BRAUN : 1975; Age: 41 years Male MR: [id number] Study: Abdomen wo contrast MRI 12/18/2016 5:31 PM [employer] CLINICAL INDICATION: Abdominal distension, Patient presents to the hospital with 5 days history of recurrent fatigue and generalized weakness. Patient also reports intermittent generalized mild abdominal discomfort and pain. COMPARISON: Right upper quadrant ultrasound on 12/17/2016 TECHNIQUE: Magnetic resonance cholangiopancreatography is performed with multiplanar sequencing. Thick slab MRCP images and maximum intensity projection images are also obtained. FINDINGS: Enlarged liver measuring 23 cm in longitudinal dimension. Nonspecific periportal edema. Extensive gallbladder wall thickening. Several hypointense T2 foci are seen within the gallbladder wall. The gallbladder is not significantly distended. No evidence of gallstones. No evidence of intrahepatic or extrahepatic biliary ductal dilatation. No filling defect within the biliary ductal system to suggest a stone. Normal tapering and contour of the distal common bile duct. The common bile duct is normal in caliber measuring 5 mm in maximum diameter. The pancreas and pancreatic duct appear normal. Enlarged spleen measuring 17.5 cm in longitudinal dimension. Circumscribed 1.9 cm cyst within the superior right kidney. Subcentimeter cyst within the superior left kidney. No adrenal nodules. No evidence of retroperitoneal lymphadenopathy. Trace right pleural effusion. Trace ascites. The visualized bowel loops are grossly normal. IMPRESSION: Markedly thickened gallbladder wall. Differential considerations include hepatitis, hyperproteinemia, or possibly acalculous cholecystitis. Given the presence of several hypointense T2 foci within the gallbladder wall, xanthogranulomatous cholecystitis is also a possibility. No evidence of biliary ductal dilatation or choledocholithiasis. Hepatosplenomegaly. Trace right pleural effusion. Trace ascites. SL: [id number] 12/19/2016 - - Read by: Aaron Moreira MD Dictated Date/time: 12/19/16 08:38 Electronically Signed by: Aaron Moreira MD 12/19/16 08:48 FINAL REPORT [facility] HEMATOLOGY Basophils # 0.1 K/CMM 0.0 - 0.2 12/18/2016 [facility] IMMUNOLOGY SMA Titer See Note (12/18/16 5:51 AM) Negative 12/18/2016 [facility] IMMUNOLOGY AMA Ab Scr See Note (12/18/16 5:51 AM) Negative 12/18/2016 [facility] IMMUNOLOGY TREV See Note 2 (12/18/16 5:51 AM) Negative 12/18/2016 Result Comment: Please disregard result. Testing performed on green top tube, see acc # [id number] for repeat testing [facility] SMA Screen See Note (12/18/16 5:51 AM) Negative 12/18/2016 [facility] TUMOR MARKERS AFP 6.1 ng/mL 0.0 - 11.0 12/18/2016 [facility] CHEM PANEL Bili Direct 14.0 mg/dL 0.0 - 0.3 12/18/2016 [facility] BLOOD BANK RESULTS ABO/Rh A NEG 12/18/2016 [facility] BLOOD BANK RESULTS Antibody Scrn Negative (12/17/16 10:31 PM) 12/18/2016 [facility] RAPID Grp A Strep Scr Negative (12/17/16 10:31 PM) Negative 12/18/2016 [facility] URINE AND STOOL UA Color Addie 12/18/2016 [facility] URINE AND STOOL UA RBC 2 /HPF 0 - 2 12/18/2016 [facility] URINE AND STOOL UA Sq Epi None Seen 12/18/2016 [facility] URINE AND STOOL UA Leuk Est Negative (12/17/16 10:31 PM) Negative 12/18/2016 [facility] URINE AND STOOL UA Urobilinogen 2.0 mg/dL 0.1 - 1.0 12/18/2016 [facility] URINE AND STOOL UA Blood Negative (12/17/16 10:31 PM) Negative 12/18/2016 [facility] URINE AND STOOL UA WBC 1 /HPF 0 - 5 12/18/2016 [facility] URINE AND STOOL UA Nitrite Negative (12/17/16 10:31 PM) Negative 12/18/2016 [facility] URINE AND STOOL UA Bili Small *ABN* (12/17/16 10:31 PM) Negative 12/18/2016 [facility] URINE AND STOOL UA Ketones Negative mg/dL Negative mg/dL 12/18/2016 [facility] URINE AND STOOL UA Protein Negative mg/dL Negative mg/dL 12/18/2016 [facility] URINE AND STOOL UA Glucose 500 mg/dL Negative mg/dL 12/18/2016 [facility] URINE AND STOOL UA pH 6.0 5.0 - 8.0 12/18/2016 [facility] URINE AND STOOL UA Spec Grav 1.029 <=1.030 12/18/2016 [facility] URINE AND STOOL UA Turbidity Clear (12/17/16 10:31 PM) Clear 12/18/2016 [facility] VIRAL - SEROLOGY Influ B Negative (12/17/16 10:31 PM) Negative 12/18/2016 [facility] VIRAL - SEROLOGY Influ A Negative (12/17/16 10:31 PM) Negative 12/18/2016 [facility] CHEM PANEL Amylase Lvl 13 unit/L 25 - 115 12/18/2016 [facility] CHEM PANEL Lipase Lvl 155 unit/L 73 - 393 12/18/2016 [facility] Hep B Core IgM Positive *NA* (12/17/16 10:15 PM) Negative 12/18/2016 [facility] Hep Bs Ag Conf Confirmed *NA* (12/17/16 10:15 PM) 12/18/2016 [facility] Hep Bs Ag Positive *NA* (12/17/16 10:15 PM) Negative 12/18/2016 [facility] Hep A IgM Negative *NA* (12/17/16 10:15 PM) Negative 12/18/2016 [facility] Hep C Ab Negative *NA* (12/17/16 10:15 PM) 12/18/2016 [facility] Abdomen RUQ US Abdomen RUQ US Study: Ultrasound of right upper quadrant History: Abdominal pain Comments: Liver: Diffuse increased liver echogenicity suggesting steatosis. Enlarged liver measuring 21 cm in CC dimension. No focal liver mass. Small amount of ascites in the right abdomen. No intrahepatic or extrahepatic bile duct dilatation.CBD measures 5 mm Pancreas is not well visualized due to overlying bowel gas. Gallbladder: Sludge present in the gallbladder. No gallstones. Diffuse gallbladder wall thickening measuring 12 mm is likely due to ascites rather than acute cholecystitis. Sonographic Sharp sign is negative. If there is high clinical suspicion for acute cholecystitis, consider HIDA scan. Right kidney: No hydronephrosis or nephrolithiasis. The kidney measures 12.6 x 5.8 x 6.2 cm Impression: No cholelithiasis. Diffuse gallbladder wall thickening measuring 12 mm is likely due to ascites rather than acute cholecystitis.If there is high clinical suspicion for acute cholecystitis, consider HIDA scan. Hepatomegaly with steatosis. 12/17/2016 - - Read by: Carissa Thornton MD Dictated Date/time: 12/17/16 23:10 Electronically Signed by: Carissa Thornton MD 12/17/16 23:27 FINAL REPORT [facility] Vital Signs Vital Sign Value Date Comments Source Temperature Oral (F) 99.4 F 12/25/2016 [facility] Heart Rate 97 12/25/2016 [facility] Systolic (mm Hg) 107 12/25/2016 [facility] Diastolic (mm Hg) 69 12/25/2016 [facility] Respitory Rate 17 12/25/2016 [facility] Systolic (mm Hg) 104 12/25/2016 [facility] Diastolic (mm Hg) 70 12/25/2016 [facility] Heart Rate 92 12/25/2016 [facility] Respitory Rate 17 12/25/2016 [facility] Temperature Oral (F) 98.8 F 12/25/2016 [facility] Heart Rate 90 12/25/2016 [facility] Respitory Rate 16 12/25/2016 [facility] Temperature Oral (F) 98.4 F 12/25/2016 [facility] Systolic (mm Hg) 106 12/25/2016 [facility] Diastolic (mm Hg) 69 12/25/2016 [facility] Weight 115.455 12/18/2016 [facility] BMI Calculated 35.5 12/18/2016 [facility] Height 180.34 cm 12/18/2016 [facility] Weight 115 12/18/2016 [facility] Height 180.34 cm 12/18/2016 [facility] BMI Calculated 35.36 12/18/2016 [facility] Encounters Location Location Details Encounter Type Encounter Number Reason For Visit Attending Provider ADM Date DC Date Status Source [facility] Inpatient [id number] Jimbo Berkowitz 12/18/2016 12/26/2016 [facility] Procedures Procedure Code Date Perfomer Comments Source Tonsillectomy [id number] [facility] Vasectomy [id number] [facility]
[2019-04-12] MEDS ORDERED: VANCOMYCIN 1GM/NS 250 ML 250 ML IV STA ×2 (15:20→16:50)
[2019-04-12] MEDS ORDERED: HYDROCODONE/APAP 10MG-325MG TAB PO NR (15:30)
[2019-04-12] MEDS ORDERED: PIPER-TAZ 3.375 GM 50 ML IV NR ×2 (15:30→17:00)
[2019-04-12] MEDS ORDERED: CLINDAMYCIN PHOS 900MG/ 50ML 50 ML IV NR ×2 (15:45→17:00)
[2019-04-12 16:31] LABS: BASOPHILS % 0.3 % (0.0-1.0); EOSINOPHILS # (AUTO) 0.1 (0.0-0.4); EOSINOPHILS % 0.9 % (0.0-6.0); HEMOGLOBIN 16.1 g/dL (14.0-18.0); LYMPHOCYTES # (AUTO) 1.3 (1.0-3.2); LYMPHOCYTES % 10.8 % (18.0-39.1); MEAN CORPUSCULAR HEMOGLOBIN 30.2 pg (28-32); MEAN CORPUSCULAR HGB CONC 36.6 g/dL (31-35); MEAN CORPUSCULAR VOLUME 82.6 fL (81-99); MONOCYTES # (AUTO) 1.2 (0.2-0.8); MONOCYTES % 9.4 % (4.4-11.3); NEUTROPHILS # (AUTO) 9.5 (2.1-6.9); NEUTROPHILS % 78.3 % (38.7-80.0); PLATELET COUNT 142 x10e3/uL (140-360); RED BLOOD COUNT 5.33 x10e6/uL (4.3-5.7); RED CELL DISTRIBUTION WIDTH 12.4 % (11.7-14.4)
[2019-04-12 16:39] LABS: BILIRUBIN,URINE NEGATIVE (NEGATIVE); CLARITY,URINE CLEAR (CLEAR); COLOR,URINE YELLOW (YELLOW); KETONES,URINE NEGATIVE (NEGATIVE); LEUKOCYTE ESTERASE ,URINE NEGATIVE (NEGATIVE); NITRITE,URINE NEGATIVE (NEGATIVE); PROTEIN,URINE DIPSTICK 1+ (NEGATIVE); URINE UROBILINOGEN 1 mg/dL (0.2 - 1)
[2019-04-12 16:49] LABS: ALANINE AMINOTRANSFERASE 116 IU/L (0-55); ALBUMIN 3.6 g/dL (3.5-5.0); ALBUMIN/GLOBULIN RATIO 0.9 (0.8-2.0); ALKALINE PHOSPHATASE 188 IU/L (40-150); ANION GAP 13.4 mmol/L (8-16); BLOOD UREA NITROGEN 12 mg/dL (7-26); BUN/CREATININE RATIO 12 (6-25); CALCIUM 9.6 mg/dL (8.4-10.2); CARBON DIOXIDE 22 mmol/L (22-29); CHLORIDE 98 mmol/L (98-107); CREATININE, SERUM 0.99 mg/dL (0.72-1.25); EST GLOMERULAR FILTRATION RATE > 60 ML/MIN (60-); GLUCOSE 341 mg/dL (74-118); POTASSIUM 3.4 mmol/L (3.5-5.1); SODIUM 130 mmol/L (136-145)
[2019-04-12] MEDS ORDERED: SODIUM CHLORIDE 0.9% 1000ML 1,000 ML IV ONE (16:50)
[2019-04-12 16:52] LABS: BACTERIA,URINE RARE /HPF; EPITHELIAL CELLS,URINE RARE /LPF; RBC,URINE 0-5 /HPF (0-5); WBC,URINE (MAN) 0-5 /HPF (0-5)
[2019-04-12] MEDS: SODIUM CHLORIDE 0.9% 1000ML 1,000 ML IV STA (17:00)
[2019-04-12 17:56] VITALS: BP 118/79
== END 2019-04-12 17:55 | disposition home or self-care (01) ==
LOC: ER 14:57
DX: M79.661 Pain in right lower leg (principal); L03.115 Cellulitis of right lower limb; B19.10 Unspecified viral hepatitis B without hepatic coma
CPT/HCPCS: 36415; 80053; 81001; 83605; 85025; 87040; 87086; 99283; J7030; J2543; J3370